=== PATIENT | male | born 1980 | race Caucasian/White ===

== ENCOUNTER → 2018-01-01 | Outpatient (CLI) | payer BC ==
--- NOTE | 2018-01-02 13:39 | ECHOF ---
Referral Reason:R06.02 Shortness of breath / I10 Hypertension MEASUREMENTS -------- HEIGHT: 193.0 cm WEIGHT: 158.8 kg BP: 171/93 RVIDd: 3.3 cm (< 3.3) IVSd: 1.4 cm (0.6 - 1.1) LVIDd: 5.5 cm (3.9 - 5.3) LVPWd: 1.5 cm (0.6 - 1.1) IVSs: 1.7 cm LVIDs: 3.9 cm LVPWs: 1.8 cm LAESV Index (A-L): 16.51 ml/m Ao Diam: 3.2 cm (2.0 - 3.7) AV Cusp: 2.2 cm (1.5 - 2.6) LA Diam: 4.0 cm (2.7 - 3.8) EPSS: 0.6 cm MV E Evans: 0.71 m/s MV DecT: 244 ms MV A Evans: 0.64 m/s MV E/A Ratio: 1.12 RAP: 5.00 mmHg RVSP: 13.54 mmHg MV EF SLOPE: 82.30 mm/s (70 - 150) MV EXCURSION: 1.27 cm (> 18.000) FINDINGS -------- Sinus rhythm. This was a technically difficult study with suboptimal views. The left ventricular size is normal. There is mild concentric left ventricular hypertrophy. Overa ll left ventricular systolic function is low-normal with, an EF between 50 - 55 %. The right ventricle is mildly enlarged. Normal LA size by volume 22+/-6 ml/m2. The right atrium is normal in size. 3ml of Lumason was utilized for enhancement of images. There is mild aortic valve sclerosis. There is no evidence of aortic regurgitation. There is no e vidence of aortic stenosis. The mitral valve leaflets are mildly thickened. There is trace to mild mitral regurgitation. Trace tricuspid regurgitation present. Right ventricular systolic pressure is normal at < 35 mmHg. There is no evidence of pulmonary hypertension. Trace/mild (physiologic) pulmonic regurgitation. The aortic root size is normal. Normal inferior vena cava with normal inspiratory collapse consistent with estimated right atrial pre ssure of 5 mmHg. There is no pericardial effusion. CONCLUSIONS -------- 1. Sinus rhythm. 2. This was a technically difficult study with suboptimal views. 3. The left ventricular size is normal. 4. There is mild concentric left ventricular hypertrophy. 5. Overall left ventricular systolic function is low-normal with, an EF between 50 - 55 %. 6. The right ventricle is mildly enlarged. 7. Normal LA size by volume 22+/-6 ml/m2. 8. 3ml of Lumason was utilized for enhancement of images. 9. There is mild aortic valve sclerosis. 10. The mitral valve leaflets are mildly thickened. 11. There is trace to mild mitral regurgitation. 12. Trace tricuspid regurgitation present. 13. Right ventricular systolic pressure is normal at < 35 mmHg. 14. There is no evidence of pulmonary hypertension. 15. Trace/mild (physiologic) pulmonic regurgitation. 16. The aortic root size is normal. 17. There is no pericardial effusion. AVIONICS INSTALLER: Lauro Asencio RDCS
== END | disposition home or self-care (01) ==
LOC: RADECHMAIN 15:09
PROVIDERS: ATTEND Family Medicine
DX: I08.1 Rheumatic disorders of both mitral and tricuspid valves (principal); I11.9 Hypertensive heart disease without heart failure
CPT/HCPCS: 93306; Q9950

== ENCOUNTER 2018-03-09 22:55 | Emergency (ER) | payer BC ==
[2018-03-10] MEDS ORDERED: ONDANSETRON ODT 8 MG TAB.RAPDIS PO STA (00:02)
[2018-03-10] MEDS ORDERED: SODIUM CHLORIDE 0.9% 1,000 ML IV STA (00:02)
[2018-03-10] MEDS ORDERED: KETOROLAC 30 MG/ML 1 ML VIAL IVP STA (00:05)
[2018-03-10] MEDS ORDERED: ONDANSETRON 4 MG/2 ML VIAL IVP STA (00:08)
[2018-03-10 00:17] LABS: Basophils % (A) 0 %; Eosinophils # (A) 0.1 k/uL (0-0.7); Eosinophils % (A) 0 %; HCT 47.6 % (39.0-53.0); HGB 15.7 gm/dL (13.0-17.5); Lymphocytes # (A) 2.6 k/uL (1.0-4.8); Lymphocytes % (A) 17 %; MCH 30.9 pg (25.0-35.0); MCHC 33.1 g/dL (31.0-37.0); MCV 93.5 fL (80.0-100.0); Mean Platelet Volume 6.7; Monocytes # (A) 0.7 k/uL (0-1.0); Monocytes % (A) 5 %; Neutrophils # (A) 11.5 k/uL (1.3-7.7); Neutrophils % (A) 76 %; Platelet Count 309 k/uL (150-450); RBC 5.09 m/uL (4.30-5.90); RDW 13.5 % (11.5-15.5); WBC 15.1 k/uL (3.8-10.6)
--- NOTE | 2018-03-10 00:18 | ED ---
General Adult HPI - General Chief complaint: Abdominal Pain Stated complaint: side pain Time Seen by Provider: 03/09/18 23:50 Source: patient, RN notes reviewed Mode of arrival: ambulatory Limitations: no limitations - History of Present Illness Initial comments: 37-year-old male presents to the emergency determine for a chief complaint of left-sided flank pain times one day. Patient states the pain starts in his back and radiates around his abdomen down to his groin and testicle. Patient denies history of kidney stones. Patient denies seeing any blood in the urine. Patient states he cannot take comfortable and is moving around the room. Patient admits to nausea denies vomiting. Patient denies any fevers or chills at home.Patient has no other complaints at this time including shortness of breath, chest pain, abdominal pain, nausea or vomiting, headache, or visual changes. - Related Data Home Medications Medication Instructions Recorded Confirmed Captopril/Hydrochlorothiazide 1 tab PO DAILY 03/09/18 03/09/18 [Capozide 50-25 mg] Metoprolol Succinate (ER) [Toprol 100 mg PO DAILY 03/09/18 03/09/18 Xl] Previous Rx's Medication Instructions Recorded HYDROcodone/APAP 5-325MG [Bardolph 1 tab PO Q6HR PRN #10 tab 03/10/18 5-325] Ibuprofen [Motrin] 600 mg PO Q6HR PRN #20 tab 03/10/18 Ondansetron HCl [Zofran] 4 mg PO Q8HR PRN #14 tablet 03/10/18 Tamsulosin [Flomax] 0.4 mg PO DAILY #20 cap 03/10/18 Allergies Allergy/AdvReac Type Severity Reaction Status Date / Time No Known Allergies Allergy Verified 03/09/18 23:40 Review of Systems ROS Statement: Those systems with pertinent positive or pertinent negative responses have been documented in the HPI. ROS Other: All systems not noted in ROS Statement are negative. Past Medical History Past Medical History: Hypertension History of Any Multi-Drug Resistant Organisms: None Reported Past Surgical History: No Surgical Hx Reported Past Psychological History: Anxiety Smoking Status: Never smoker Past Alcohol Use History: Occasional Past Drug Use History: None Reported General Exam Limitations: no limitations General appearance: alert, anxious (patient walking around room, uncomfortable) Head exam: Present: atraumatic, normocephalic, normal inspection Eye exam: Present: normal appearance. Absent: scleral icterus, conjunctival injection ENT exam: Present: normal exam, mucous membranes moist Neck exam: Present: normal inspection, full ROM. Absent: tenderness, meningismus, lymphadenopathy Respiratory exam: Present: normal lung sounds bilaterally. Absent: respiratory distress, wheezes, rales, rhonchi, stridor Cardiovascular Exam: Present: regular rate, normal rhythm, normal heart sounds. Absent: systolic murmur, diastolic murmur, rubs, gallop, clicks GI/Abdominal exam: Present: soft, tenderness (mild LLQ tenderness), normal bowel sounds. Absent: distended, guarding, rebound, rigid Back exam: Present: CVA tenderness (L) (cva tenderness) Neurological exam: Present: alert, oriented X3, CN II-XII intact Psychiatric exam: Present: normal affect, normal mood Course Vital Signs 03/09/18 23:05 Temperature 98.0 F Pulse Rate 75 Respiratory 18 Rate Blood Pressure 197/112 O2 Sat by Pulse 93 L Oximetry Medical Decision Making - Medical Decision Making 37-year-old male presents to the emergency department for a chief complaint of left flank pain times one day. Patient states the pain radiates from his abdomen into his testicle. Patient denies history of kidney stones. No blood in the urine according to patient. CBC shows a white count of 15.1, likely reactive. Urine shows no signs of infection, no fever. ALT slightly elevated at 131. CT abdomen and pelvis shows a small left renal calculus. Obstructing calculus in the distal left ureter with hydronephrosis and hydroureter. Patient will be discharged home with Flomax and Zofran. He will take Motrin for pain and if pain is severe he will take Bardolph. He is aware to follow up with urology in 1-2 days. I did discuss possibility of having lithotripsy as soreness 5 mm and patient is aware. He will return to the emergency department if he has any worsening symptoms. - Lab Data Result diagrams: 03/09/18 23:40 03/09/18 23:40 Lab Results 03/09/18 03/09/18 03/10/18 Range/Units 23:40 23:40 01:22 WBC 15.1 H (3.8-10.6) k/uL RBC 5.09 (4.30-5.90) m/uL Hgb 15.7 (13.0-17.5) gm/dL Hct 47.6 (39.0-53.0) % MCV 93.5 (80.0-100.0) fL MCH 30.9 (25.0-35.0) pg MCHC 33.1 (31.0-37.0) g/dL RDW 13.5 (11.5-15.5) % Plt Count 309 (150-450) k/uL Neutrophils % 76 % Lymphocytes % 17 % Monocytes % 5 % Eosinophils % 0 % Basophils % 0 % Neutrophils # 11.5 H (1.3-7.7) k/uL Lymphocytes # 2.6 (1.0-4.8) k/uL Monocytes # 0.7 (0-1.0) k/uL Eosinophils # 0.1 (0-0.7) k/uL Basophils # 0.0 (0-0.2) k/uL Sodium 140 (137-145) mmol/L Potassium 3.5 (3.5-5.1) mmol/L Chloride 99 (98-107) mmol/L Carbon Dioxide 30 (22-30) mmol/L Anion Gap 11 mmol/L BUN 13 (9-20) mg/dL Creatinine 1.00 (0.66-1.25) mg/dL Est GFR (CKD-EPI)AfAm >90 (>60 ml/min/1.73 sqM) Est GFR (CKD-EPI)NonAf >90 (>60 ml/min/1.73 sqM) Glucose 158 H (74-99) mg/dL Calcium 9.2 (8.4-10.2) mg/dL Total Bilirubin 0.5 (0.2-1.3) mg/dL AST 64 H (17-59) U/L ALT 131 H (21-72) U/L Alkaline Phosphatase 111 (38-126) U/L Total Protein 6.9 (6.3-8.2) g/dL Albumin 4.5 (3.5-5.0) g/dL Amylase 53 (30-110) U/L Lipase 31 (23-300) U/L Urine Color Light Yellow Urine Appearance Clear (Clear) Urine pH 7.0 (5.0-8.0) Ur Specific [place] 1.012 (1.001-1.035) Urine Protein Negative (Negative) Urine Glucose (UA) Trace H (Negative) Urine Ketones Negative (Negative) Urine Blood Negative (Negative) Urine Nitrite Negative (Negative) Urine Bilirubin Negative (Negative) Urine Urobilinogen <2.0 (<2.0) mg/dL Ur Leukocyte Esterase Negative (Negative) Disposition Clinical Impression: Ureterolithiasis Disposition: HOME SELF-CARE Condition: Good Instructions: Kidney Stones (ED) Additional Instructions: Please take Motrin for pain. If pain is severe take Bardolph. Please take Zofran for nausea. Take Flomax once a day. Follow up with urology tomorrow. Follow- up with primary care in 1-2 days as well. Return to the emergency department if you have any worsening symptoms. Prescriptions: HYDROcodone/APAP 5-325MG [Bardolph 5-325] 1 tab PO Q6HR PRN #10 tab PRN Reason: Pain Ibuprofen [Motrin] 600 mg PO Q6HR PRN #20 tab PRN Reason: Pain Ondansetron HCl [Zofran] 4 mg PO Q8HR PRN #14 tablet PRN Reason: Nausea Tamsulosin [Flomax] 0.4 mg PO DAILY #20 cap Is patient prescribed a controlled substance at d/c from ED?: No Referrals: Francisco Javier Jeter MD [Primary Care Provider] - 1-2 days Froylan Salamanca MD [STAFF PHYSICIAN] - 1-2 days Time of Disposition: 02:48
[2018-03-10 00:35] LABS: ALT 131 U/L (21-72); AST 64 U/L (17-59); Albumin 4.5 g/dL (3.5-5.0); Alkaline Phosphatase 111 U/L (38-126); Amylase 53 U/L (30-110); Anion Gap 11 mmol/L; Blood Urea Nitrogen 13 mg/dL (9-20); Calcium 9.2 mg/dL (8.4-10.2); Carbon Dioxide 30 mmol/L (22-30); Chloride 99 mmol/L (98-107); Glucose 158 mg/dL (74-99); Lipase 31 U/L (23-300); Potassium 3.5 mmol/L (3.5-5.1); Sodium 140 mmol/L (137-145); Total Bilirubin 0.5 mg/dL (0.2-1.3); Total Protein 6.9 g/dL (6.3-8.2)
[2018-03-10 01:50] LABS: Appearance,Urine Clear (Clear); Bilirubin,Urine Negative (Negative); Blood,Urine Negative (Negative); Color,Urine Light Yellow; Glucose,Urine (UA) Trace (Negative); Ketones,Urine Negative (Negative); Leukocyte Esterase,Urine Negative (Negative); Nitrite,Urine Negative (Negative); Protein,Urine Negative (Negative); Specific Gravity,Urine 1.012 (1.001-1.035); Urobilinogen,Urine <2.0 mg/dL (<2.0)
--- NOTE | 2018-03-10 01:51 | CT ---
EXAMINATION TYPE: CT abdomen pelvis wo con DATE OF EXAM: 03/10/2018 COMPARISON: None HISTORY: left flank pain renal stone protocol CT DLP: 2831.90 mGycm Automated exposure control for dose reduction was used. TECHNIQUE: Helical acquisition of images was performed from the lung bases through the pelvis. FINDINGS: Lung bases are clear. There is no pleural effusion. Heart size is normal. There is no pericardial eff usion. There are small hiatal hernia. Liver spleen pancreas gallbladder appear normal. Bile ducts are not dilated. There is no adrenal mass . Kidneys of normal size. There is mild left-sided hydronephrosis. There is mild left hydroureter and 5 mm calculus in the distal left ureter. There is mild left-sided perinephric edema. Right kidney sh ows no hydronephrosis. There is no retroperitoneal adenopathy. There is no ascites. There is umbilical hernia that contains fat. Appendix appears normal. There is no sign of free air. There is no intestinal wall thickening. T here are no dilated loops. Bladder distends smoothly. There is no bony destructive process. There is no compression fracture. Lumbar spine is intact. There is 3 mm calculus in the posterior left kidney. IMPRESSION: SMALL LEFT RENAL CALCULUS. OBSTRUCTING CALCULUS IN THE DISTAL LEFT URETER WITH HYDRONEPHROSIS AND HYD ROURETER.
[2018-03-10] MEDS ORDERED: MORPHINE SULFATE 4 MG/ML SYRINGE IVP STA (01:53)
[2018-03-10] MEDS ORDERED: HYDROcodone/APAP 5-325MG 1 EACH TAB PO STA (02:56)
[2018-03-10 03:18] VITALS: BP 183/93; PULSE 77; RESP 19; TEMP 97.5
== END 2018-03-10 03:12 | disposition home or self-care (01) ==
LOC: EC 22:55
DX: N13.2 Hydronephrosis with renal and ureteral calculous obstruction (principal); I10 Essential (primary) hypertension; Z79.899 Other long term (current) drug therapy
CPT/HCPCS: 99284; 96374; 96375 ×2; 96361; 36415; 80053; 82150; 83690; 85025; 81003; 74176; J2270; J2405; J1885

== ENCOUNTER → 2018-03-12 | Outpatient (CLI) | payer BC ==
--- NOTE | 2018-03-12 10:27 | XR ---
EXAMINATION TYPE: XR KUB DATE OF EXAM: 03/12/2018 COMPARISON: CT scan 03/10/2018 HISTORY: Follow-up left renal calculus TECHNIQUE: One view abdominal series FINDINGS: The osseous structures are intact. The bowel gas pattern is nonspecific. No suspicious calcification s or seen overlying the kidneys. A small renal calculus noted by recent CT scan is not clearly seen b y standard x-ray. Within the pelvis there is a vague 3 to 4 mm calcification at the level left hemipelvis which may rep resent a corresponding CT ureteral calculus. IMPRESSION: 1. Vague 4 mm hypodensity left hemipelvis may represent the CT reported left distal ureteral calculus .
== END | disposition home or self-care (01) ==
LOC: RADXRMAIN 10:04
PROVIDERS: ATTEND Urology
DX: N20.1 Calculus of ureter (principal)
CPT/HCPCS: 74018

== ENCOUNTER 2020-06-13 08:43 | Inpatient (IN) | payer BC ==
[2020-06-13] MEDS ORDERED: KETOROLAC 15 MG/ML 1 ML VIAL IVP STA (09:03)
[2020-06-13] MEDS ORDERED: cefTRIAXone IN SWFI 1,000 MG/10 ML SYRINGE IVP STA (09:04)
[2020-06-13] MEDS ORDERED: VANCOMYCIN IV PER PHARMACY 1 EACH MISC MISCELLANE PRN (09:05)
--- NOTE | 2020-06-13 09:07 | ED ---
General Adult HPI - General Chief complaint: ENT Stated complaint: neck swelling Time Seen by Provider: 06/13/20 08:50 Source: patient, RN notes reviewed, old records reviewed Mode of arrival: ambulatory Limitations: no limitations - History of Present Illness Initial comments: This is a 40-year-old male who presents emergency department stating that a few days ago he started having a abscess on the side of his neck. Patient saw his primary medical care doctor was given a shot of antibiotics in the office and then was given Bactrim. Patient states symptoms got worse this morning was significantly more painful. So he went saw his primary medical care doctor. The doctor sent him in the emergency department to be admitted. Patient indicated to me that he he did not think he would be able to tolerate the pain of having an I&D done in the emergency department. Patient denies any fever chills per patient denies any other symptoms. - Related Data Home Medications Medication Instructions Recorded Confirmed Metoprolol Succinate (ER) [Toprol 100 mg PO DAILY 03/09/18 06/13/20 Xl] Empagliflozin/Linagliptin 1 tab PO DAILY 06/13/20 06/13/20 [Glyxambi 25 mg-5 mg Tablet] Losartan Potassium 100 mg PO DAILY 06/13/20 06/13/20 amLODIPine [Norvasc] 10 mg PO DAILY 06/13/20 06/13/20 hydroCHLOROthiazide [Hydrodiuril] 25 mg PO DAILY 06/13/20 06/13/20 Allergies Allergy/AdvReac Type Severity Reaction Status Date / Time No Known Allergies Allergy Verified 06/13/20 10:13 Review of Systems ROS Statement: Those systems with pertinent positive or pertinent negative responses have been documented in the HPI. ROS Other: All systems not noted in ROS Statement are negative. Past Medical History Past Medical History: Diabetes Mellitus, Hypertension History of Any Multi-Drug Resistant Organisms: None Reported Past Surgical History: No Surgical Hx Reported Past Psychological History: Anxiety Smoking Status: Never smoker Past Alcohol Use History: Occasional Past Drug Use History: None Reported General Exam - General Exam Comments Initial Comments: GENERAL Patient is well-developed and well-nourished. Patient is in mild distress. EYES Patient's pupils are equal and round. Extraocular motion is intact NECK Patient has a large indurated area measuring approximately 5 seconds on the left side of his neck there is no open drainage at this point SKIN Unremarkable NEURO The patient is alert and oriented 3 PYSCH Patient has normal interpersonal interactions. MUSCULOSKELETAL Patient was all 4 extremities with full range of motion Limitations: no limitations Course Vital Signs 06/13/20 06/13/20 06/13/20 08:48 09:51 10:00 Temperature 98.6 F Pulse Rate 79 75 Respiratory 18 18 18 Rate Blood Pressure 150/92 175/95 O2 Sat by Pulse 95 95 Oximetry Medical Decision Making - Medical Decision Making Computed tomography scan shows an abscess on the left side of the neck. I sta rted the patient on Rocephin and vancomycin. I spoke with Dr. More agreed to admit the patient admitted the patient wrote admitting orders - Lab Data Result diagrams: 06/13/20 09:56 06/13/20 10:53 Lab Results 06/13/20 06/13/20 06/13/20 Range/Units 09:56 09:56 10:53 WBC 12.8 H (3.8-10.6) k/uL RBC 5.41 (4.30-5.90) m/uL Hgb 17.4 (13.0-17.5) gm/dL Hct 53.0 (39.0-53.0) % MCV 97.9 (80.0-100.0) fL MCH 32.2 (25.0-35.0) pg MCHC 32.9 (31.0-37.0) g/dL RDW 12.5 (11.5-15.5) % Plt Count 280 (150-450) k/uL Neutrophils % 73 % Lymphocytes % 18 % Monocytes % 6 % Eosinophils % 2 % Basophils % 0 % Neutrophils # 9.3 H (1.3-7.7) k/uL Lymphocytes # 2.3 (1.0-4.8) k/uL Monocytes # 0.7 (0-1.0) k/uL Eosinophils # 0.2 (0-0.7) k/uL Basophils # 0.1 (0-0.2) k/uL Sodium 138 (137-145) mmol/L Potassium 3.8 (3.5-5.1) mmol/L Chloride 99 (98-107) mmol/L Carbon Dioxide 33 H (22-30) mmol/L Anion Gap 6 mmol/L BUN 14 (9-20) mg/dL Creatinine 0.72 (0.66-1.25) mg/dL Est GFR (CKD-EPI)AfAm >90 (>60 ml/min/1.73 sqM) Est GFR (CKD-EPI)NonAf >90 (>60 ml/min/1.73 sqM) Glucose 110 H (74-99) mg/dL Plasma Lactic Acid Tony 1.0 (0.7-2.0) mmol/L Calcium 9.1 (8.4-10.2) mg/dL Total Bilirubin 0.6 (0.2-1.3) mg/dL AST 24 (17-59) U/L ALT 22 (4-49) U/L Alkaline Phosphatase 96 (38-126) U/L Total Protein 6.7 (6.3-8.2) g/dL Albumin 4.1 (3.5-5.0) g/dL Disposition Clinical Impression: Neck abscess Disposition: ADMITTED IP TO THIS HOSP Referrals: Francisco Javier Jeter MD [Primary Care Provider] - 1-2 days Time of Disposition: 11:44
[2020-06-13] MEDS ORDERED: VANCOMYCIN 2,250 MG in SODIUM CHLORIDE 0.9% 500 ML 500 ML IVPB ONE (09:30)
[2020-06-13 10:09] LABS: Basophils # (A) 0.1 k/uL (0-0.2); Basophils % (A) 0 %; Eosinophils # (A) 0.2 k/uL (0-0.7); Eosinophils % (A) 2 %; HGB 17.4 gm/dL (13.0-17.5); Lymphocytes # (A) 2.3 k/uL (1.0-4.8); Lymphocytes % (A) 18 %; MCH 32.2 pg (25.0-35.0); MCHC 32.9 g/dL (31.0-37.0); MCV 97.9 fL (80.0-100.0); Mean Platelet Volume 8.3; Monocytes # (A) 0.7 k/uL (0-1.0); Monocytes % (A) 6 %; Neutrophils # (A) 9.3 k/uL (1.3-7.7); Neutrophils % (A) 73 %; Platelet Count 280 k/uL (150-450); RBC 5.41 m/uL (4.30-5.90); RDW 12.5 % (11.5-15.5); WBC 12.8 k/uL (3.8-10.6)
[2020-06-13] MEDS ORDERED: hydrALAZINE HCL 20 MG/ML 1 ML VIAL IVP STA (11:02)
[2020-06-13 11:23] LABS: ALT 22 U/L (4-49); AST 24 U/L (17-59); African American GFR (CKD) >90 (>60 ml/min/1.73 sqM); Albumin 4.1 g/dL (3.5-5.0); Alkaline Phosphatase 96 U/L (38-126); Anion Gap 6 mmol/L; Blood Urea Nitrogen 14 mg/dL (9-20); Calcium 9.1 mg/dL (8.4-10.2); Carbon Dioxide 33 mmol/L (22-30); Chloride 99 mmol/L (98-107); Glucose 110 mg/dL (74-99); Non-African American GFR(CKD) >90 (>60 ml/min/1.73 sqM); Potassium 3.8 mmol/L (3.5-5.1); Sodium 138 mmol/L (137-145); Total Bilirubin 0.6 mg/dL (0.2-1.3); Total Protein 6.7 g/dL (6.3-8.2)
--- NOTE | 2020-06-13 11:31 | CT ---
EXAMINATION TYPE: CT soft tissue neck w con DATE OF EXAM: 06/13/2020 10:58 AM COMPARISON: None HISTORY: Neck swelling CT DLP: 697.5 mGycm Automated exposure control for dose reduction was used. CONTRAST: CT scan of the neck is performed following with IV Contrast, patient injected with 100 mL of Isovue 3 00. Axial images are obtained, coronal and sagittal reformatted images are reviewed. FINDINGS: Airway: There is narrowing and occlusion of the nasopharynx as it courses inferiorly into the orophar ynx, with prominent palatine tonsils containing multiple tonsillar bilaterally. There is also promine nt uvula. There is no inflammation or haziness of the bilateral tonsils. The oropharynx is patent. Parotid/submandibular glands: No gross abnormality seen. Carotid/Vascular Structures: Patent. Osseous Structures: Degenerative changes of the cervical spine. Other: No cervical lymphadenopathy. No focal drainable fluid collection. IMPRESSION: 1. Enlarged palatine tonsils with tonsilliths bilaterally, causing occlusion of the nasopharynx post eriorly. The uvula is prominent, recommend direct visualization. 2. No evidence of focal drainable fluid collections.
[2020-06-13] MEDS: SODIUM CHLORIDE 0.9% 1,000 ML IV ONE ×2 (14:35→19:51)
[2020-06-13] MEDS: VANCOMYCIN 2,250 MG in SODIUM CHLORIDE 0.9% 500 ML 500 ML IVPB SCH (19:51)
[2020-06-13] MEDS ORDERED: LACTULOSE 20 GM/30 ML CUP PO PRN (20:41)
[2020-06-13] MEDS ORDERED: MAGNESIUM HYDROXIDE 2,400 MG/10 ML CUP PO PRN (20:41)
[2020-06-13] MEDS ORDERED: ONDANSETRON 4 MG/2 ML VIAL IVP PRN (20:41)
[2020-06-13] MEDS ORDERED: CALCIUM CARBONATE 500 MG CHEWABLE PO PRN (20:41)
[2020-06-13] MEDS ORDERED: NALOXONE 0.4 MG/ML 1 ML VIAL IV PRN (20:41)
[2020-06-13] MEDS ORDERED: MAG HYDROX/AL HYDROX/SIMETH 30 ML CUP PO PRN (20:41)
[2020-06-13] MEDS ORDERED: MELATONIN 3 MG TABLET PO PRN (20:41)
[2020-06-13] MEDS ORDERED: ACETAMINOPHEN TAB 325 MG TAB PO PRN (20:41)
[2020-06-13] MEDS ORDERED: KETOROLAC 15 MG/ML 1 ML VIAL IVP SCH (22:15)
[2020-06-13] MEDS: amLODIPine 10 MG TAB PO SCH ×3 (22:18→22:21)
[2020-06-13] MEDS: LOSARTAN 50 MG TAB PO SCH (22:19)
[2020-06-13] MEDS: ENOXAPARIN 40 MG/0.4 ML SYRINGE SQ SCH (22:21)
[2020-06-13] MEDS: KETOROLAC 15 MG/ML 1 ML VIAL IVP SCH (23:37)
[2020-06-14] MEDS ORDERED: KETOROLAC 15 MG/ML 1 ML VIAL IVP SCH
[2020-06-14] MEDS: VANCOMYCIN 2,250 MG in SODIUM CHLORIDE 0.9% 500 ML 500 ML IVPB SCH ×3 (03:25→18:28)
[2020-06-14] MEDS: KETOROLAC 15 MG/ML 1 ML VIAL IVP SCH ×2 (03:29→11:25)
[2020-06-14 04:36] LABS: Basophils # (A) 0.1 k/uL (0-0.2); Basophils % (A) 1 %; Eosinophils # (A) 0.2 k/uL (0-0.7); Eosinophils % (A) 2 %; HCT 48.9 % (39.0-53.0); HGB 15.8 gm/dL (13.0-17.5); Lymphocytes # (A) 2.9 k/uL (1.0-4.8); Lymphocytes % (A) 27 %; MCHC 32.3 g/dL (31.0-37.0); MCV 99.2 fL (80.0-100.0); Mean Platelet Volume 7.2; Monocytes # (A) 0.7 k/uL (0-1.0); Monocytes % (A) 6 %; Neutrophils % (A) 63 %; Platelet Count 245 k/uL (150-450); RBC 4.92 m/uL (4.30-5.90); RDW 12.6 % (11.5-15.5); WBC 11.1 k/uL (3.8-10.6)
[2020-06-14 10:03] LABS: African American GFR (CKD) 135.9 (60.0-200.0); Anion Gap 11.4 mmol/L (4.00-12.00); BUN/Creat Ratio 15.71 Ratio (12.00-20.00); Calcium 8.4 mg/dL (8.7-10.3); Carbon Dioxide 27.6 mmol/L (21.6-31.8); Non-African American GFR(CKD) 117.2 (60.0-200.0); Potassium 3.6 mmol/L (3.5-5.5)
[2020-06-14] MEDS ORDERED: LIDOCAINE 1% INJ 10MG/ML (20 ML MDV) SQ ONE ×2 (10:24→10:41)
[2020-06-14] MEDS: LINAGLIPTIN PO SCH (10:44)
[2020-06-14] MEDS: EMPAGLIFLOZIN PO SCH (10:44)
[2020-06-14] MEDS ORDERED: THIAMINE 100 MG/ML 2 ML VIAL IM STA (10:50)
[2020-06-14] MEDS ORDERED: LORazepam 2 MG/ML INJ IV PRN ×3 (10:50)
--- NOTE | 2020-06-14 11:24 | P.GSCN ---
History of Present Illness Consult date: 06/14/20 History of present illness: CHIEF COMPLAINT: Left neck abscess HISTORY OF PRESENT ILLNESS: This is a 40-year-old male with a known history of diabetes, hypertension, alcohol dependence. He presents to the emergency room with a 2 day history of a left neck abscess. He was seen by his primary care physician and was given a antibiotic injection in the office and then a prescription for Bactrim. Patient reports that his symptoms continued to worsen with swelling redness and drainage of the neck abscess. It also became more painful. He came into the emergency room for further evaluation and treatment. He had a computed tomography scan of the left neck which did show evidence of a subcutaneous abscess. Patient has been placed on IV vancomycin. Denies any hi story of MRSA. Denies any fever, chills or sweats. PAST MEDICAL HISTORY: See list. PAST SURGICAL HISTORY: See list. MEDICATIONS: See list. ALLERGIES: See list. SOCIAL HISTORY: No illicit drug use. REVIEW OF SYSTEMS: CONSTITUTIONAL: Denies fever or chills. HEENT: Denies blurred vision, vision changes, or eye pain. Denies hemoptysis CARDIOVASCULAR: Denies chest pain or pressure. RESPIRATORY: No shortness of breath. GASTROINTESTINAL: See HPI for pertinent findings HEMATOLOGIC: Denies bleeding disorders. GENITOURINARY: Denies any blood in urine or increased urinary frequency. SKIN: Denies pruitis. Denies rash. PHYSICAL EXAM: VITAL SIGNS: Reviewed GENERAL: Well-developed in no acute distress. HEENT: Left lower neck about a 2 inch in length abscess. It's fluctuant. Erythema present. Small area of puslike drainage. No sclera icterus. Extraocular movements grossly intact. Moist buccal mucosa. Head is atraumatic, normocephalic. No nasal drainage. ABDOMEN: Soft. Nondistended. Nontender umbilical hernia present NEUROLOGIC: Alert and oriented. Cranial nerves II through XII grossly intact. LABORATORY DATA: WBC 12.8 on 11.1 lactic 1.0 IMAGING: CT of neck subcutaneous abscess left neck posterior to the sternocleidomastoid muscle measuring 4.2 cm x 2.5 cm. Enlarged palatine tonsils causing occlusion of the nasopharynx posteriorly ASSESSMENT: 1. Neck abscess status post I&D at the bedside by Dr. Vega. Cultures have been obtained 2. Diabetes mellitus type 2 3. Alcohol abuse PLAN: -Status post I&D at bedside by Dr. Vega -Await wound culture results -Continue IV vancomycin -Add CIWA protocol with thiamine and multivitamin for alcohol withdrawal Thank you for this consultation Physician Correspondence Transcriber note has been reviewed by physician. Signing provider agrees with the documented findings, assessment, and plan of care. Past Medical History Past Medical History: Diabetes Mellitus, Hypertension, Sleep Apnea/CPAP/BIPAP History of Any Multi-Drug Resistant Organisms: None Reported Past Surgical History: No Surgical Hx Reported Additional Past Surgical History / Comment(s): Pilonodal cyst surgery Past Anesthesia/Blood Transfusion Reactions: No Reported Reaction Past Psychological History: Anxiety Smoking Status: Never smoker Past Alcohol Use History: Occasional Past Drug Use History: None Reported - Past Family History Father Family Medical History: Cancer, Hypertension, Prostate Disorder Additional Family Medical History / Comment(s): Prostatectomy Mother Family Medical History: Fibromyalgia Additional Family Medical History / Comment(s): Fibromyalgia, allergies Medications and Allergies Home Medications Medication Instructions Recorded Confirmed Type Metoprolol Succinate (ER) [Toprol 100 mg PO DAILY 03/09/18 06/13/20 History Xl] Empagliflozin/Linagliptin 1 tab PO DAILY 06/13/20 06/13/20 History [Glyxambi 25 mg-5 mg Tablet] Losartan Potassium 100 mg PO DAILY 06/13/20 06/13/20 History amLODIPine [Norvasc] 10 mg PO DAILY 06/13/20 06/13/20 History hydroCHLOROthiazide [Hydrodiuril] 25 mg PO DAILY 06/13/20 06/13/20 History Allergies Allergy/AdvReac Type Severity Reaction Status Date / Time No Known Allergies Allergy Verified 06/13/20 10:13 Surgical - Exam Vital Signs Temp Pulse Resp BP Pulse Ox 98.6 F 79 18 150/92 95 06/13/20 08:48 06/13/20 08:48 06/13/20 08:48 06/13/20 08:48 06/13/20 08:48 Results - Labs 06/14/20 04:15 06/14/20 04:15 Abnormal Lab Results - Last 24 Hours (Table) 06/13/20 06/14/20 06/14/20 Range/Units 10:53 04:15 04:15 WBC 11.1 H (3.8-10.6) k/uL Carbon Dioxide 33 H (22-30) mmol/L Glucose 110 H (74-99) mg/dL Calcium 8.4 L (8.7-10.3) mg/dL Diabetes panel 06/13/20 06/14/20 Range/Units 10:53 04:15 Sodium 138 141 (137-145) mmol/L Potassium 3.8 3.6 (3.5-5.1) mmol/L Chloride 99 102 (98-107) mmol/L Carbon Dioxide 33 H 27.6 (22-30) mmol/L BUN 14 11.0 (9-20) mg/dL Creatinine 0.72 0.7 (0.66-1.25) mg/dL Glucose 110 H 86 (74-99) mg/dL Calcium 9.1 8.4 L (8.4-10.2) mg/dL AST 24 (17-59) U/L ALT 22 (4-49) U/L Alkaline Phosphatase 96 (38-126) U/L Total Protein 6.7 (6.3-8.2) g/dL Albumin 4.1 (3.5-5.0) g/dL Calcium panel 06/13/20 06/14/20 Range/Units 10:53 04:15 Calcium 9.1 8.4 L (8.4-10.2) mg/dL Albumin 4.1 (3.5-5.0) g/dL Pituitary panel 06/13/20 06/14/20 Range/Units 10:53 04:15 Sodium 138 141 (137-145) mmol/L Potassium 3.8 3.6 (3.5-5.1) mmol/L Chloride 99 102 (98-107) mmol/L Carbon Dioxide 33 H 27.6 (22-30) mmol/L BUN 14 11.0 (9-20) mg/dL Creatinine 0.72 0.7 (0.66-1.25) mg/dL Glucose 110 H 86 (74-99) mg/dL Calcium 9.1 8.4 L (8.4-10.2) mg/dL Adrenal panel 06/13/20 06/14/20 Range/Units 10:53 04:15 Sodium 138 141 (137-145) mmol/L Potassium 3.8 3.6 (3.5-5.1) mmol/L Chloride 99 102 (98-107) mmol/L Carbon Dioxide 33 H 27.6 (22-30) mmol/L BUN 14 11.0 (9-20) mg/dL Creatinine 0.72 0.7 (0.66-1.25) mg/dL Glucose 110 H 86 (74-99) mg/dL Calcium 9.1 8.4 L (8.4-10.2) mg/dL Total Bilirubin 0.6 (0.2-1.3) mg/dL AST 24 (17-59) U/L ALT 22 (4-49) U/L Alkaline Phosphatase 96 (38-126) U/L Total Protein 6.7 (6.3-8.2) g/dL Albumin 4.1 (3.5-5.0) g/dL
[2020-06-14] MEDS: MULTIVITAMINS, THERA 1 EACH TAB PO SCH ×2 (11:36→12:13)
[2020-06-14] MEDS ORDERED: KETOROLAC 15 MG/ML 1 ML VIAL IVP PRN (15:03)
[2020-06-14 17:16] LABS: Glucose,Whole Blood 78 mg/dL (75-99)
[2020-06-14] MEDS: INSULIN ASPART (NovoLOG) 100 UNIT/ML VIAL SQ SCH ×2 (17:44→22:26)
[2020-06-14] MEDS: NAPROXEN 250 MG TAB PO SCH (18:26)
[2020-06-14] MEDS: THIAMINE 100 MG TAB PO SCH (18:28)
[2020-06-14] MEDS: amLODIPine 10 MG TAB PO SCH (20:19)
[2020-06-14] MEDS: LOSARTAN 50 MG TAB PO SCH (20:19)
[2020-06-14] MEDS: ENOXAPARIN 40 MG/0.4 ML SYRINGE SQ SCH (20:20)
[2020-06-14 21:33] LABS: Glucose,Whole Blood 122 mg/dL (75-99)
--- NOTE | 2020-06-15 00:15 | P.HPIM ---
History of Present Illness H&P Date: 06/14/20 Chief Complaint: Left neck abscess History of presenting complaint: This is a pleasant 40-year-old patient of Dr. Francisco Javier Jeter. Chronic stable medical conditions include diabetes, hypertension, obstructive sleep apnea, morbid obesity. Patient's had a motor described as a small wound of the back of the neck about 6 weeks ago. Has had an on and off. Did get some antibiotics from his family doctor. A faint is progressed to become painful large. Questionable fever. And came into the ER.. Some the left side of the neck. Bedside I&D was done by Dr. Vega. at the bedside. Review of systems: GEN.: None EYES: None HEENT: None NECK: [As above RESPIRATORY: None CARDIOVASCULAR: None GASTROINTESTINAL: None GENITOURINARY: None MUSCULOSKELETAL: None LYMPHATICS: None HEMATOLOGICAL: None PSYCHIATRY: None NEUROLOGICAL: None Past medical history to include: Diabetes, hypertension, sleep apnea, anxiety Social history: Works in [employer]. Drinks about 5-6 drinks a day including vodka. No smoking. . Physical examination: VITAL SIGNS: 98.6, 79, 18, 150/92, 95% room air-upon presentation GENERAL: BMI 40.5, sitting up in a chair, awake. EYES: Pupils equal. Conjunctiva normal. HEENT: External appearance of nose and ears normal, oral cavity grossly normal. NECK: JVD unable to assess; wound on the left lower portion of the neck the dr gregory on the same. Some surrounding induration. HEART: Distant heart sounds; no edema. LUNGS: Respiratory rate normal; distant breath sounds. ABDOMEN: Soft, nontender, liver spleen not palpable, no masses palpable. PSYCH: Alert and oriented x3; mood and affect normal. NEUROLOGICAL: Cranial nerves grossly intact; no facial asymmetry, power and sensation grossly intact. LYMPHATICS: No lymph nodes palpable in the axilla and neck INVESTIGATIONS, reviewed in the clinical context: White count 12.8 hemoglobin 13.4 increased neutrophils potassium 3.8 creatinine 0.7 to Soft tissue neck computed tomography scan-and large palatine tonsils causing occlusion of nasopharynx posterior daily. Assessment: -Recurrent abscess of the left part of the neck in the inferior portion externally having failed outpatient treatment. Bedside I&D candidate at this morning. -Morbid obesity BMI 40.5 -Diabetes mellitus type 2 and oral hypoglycemic -Obstructive sleep apnea uses CPAP -Essential hypertension Plan: Patient is put on IV vancomycin. Other medications and resume. Accu-Cheks will be followed. Follow Dr. Vega. Care was discussed with the patient and questions answered. Cultures pending Past Medical History Past Medical History: Diabetes Mellitus, Hypertension, Sleep Apnea/CPAP/BIPAP History of Any Multi-Drug Resistant Organisms: None Reported Past Surgical History: No Surgical Hx Reported Additional Past Surgical History / Comment(s): Pilonodal cyst surgery Past Anesthesia/Blood Transfusion Reactions: No Reported Reaction Past Psychological History: Anxiety Smoking Status: Never smoker Past Alcohol Use History: Occasional Past Drug Use History: None Reported - Past Family History Father Family Medical History: Cancer, Hypertension, Prostate Disorder Additional Family Medical History / Comment(s): Prostatectomy Mother Family Medical History: Fibromyalgia Additional Family Medical History / Comment(s): Fibromyalgia, allergies Medications and Allergies Home Medications Medication Instructions Recorded Confirmed Type Metoprolol Succinate (ER) [Toprol 100 mg PO DAILY 03/09/18 06/13/20 History Xl] Empagliflozin/Linagliptin 1 tab PO DAILY 06/13/20 06/13/20 History [Glyxambi 25 mg-5 mg Tablet] Losartan Potassium 100 mg PO DAILY 06/13/20 06/13/20 History amLODIPine [Norvasc] 10 mg PO DAILY 06/13/20 06/13/20 History hydroCHLOROthiazide [Hydrodiuril] 25 mg PO DAILY 06/13/20 06/13/20 History Allergies Allergy/AdvReac Type Severity Reaction Status Date / Time No Known Allergies Allergy Verified 06/13/20 10:13 Physical Exam Vitals: Vital Signs Temp Pulse Pulse Resp BP BP Pulse Ox 06/14/20 08:52 98 F 73 17 162/98 98 06/14/20 05:26 98.9 F 74 16 163/85 97 06/14/20 00:00 18 06/13/20 18:44 98.6 F 75 18 159/91 95 06/13/20 18:00 75 18 159/91 95 06/13/20 14:00 73 18 152/95 95 06/13/20 13:00 72 18 142/87 95 06/13/20 12:00 72 18 160/80 95 06/13/20 11:00 70 18 155/84 95 Intake and Output 06/13/20 06/14/20 06/14/20 22:59 06:59 14:59 Intake Total 280 Balance 280 Intake: Oral 280 Other: Voiding Method Toilet # Voids 2 0 # Bowel Movements 0 0 Results CBC & Chem 7: 06/14/20 04:15 06/14/20 04:15 Labs: Abnormal Lab Results - Last 24 Hours (Table) 06/13/20 06/14/20 06/14/20 Range/Units 10:53 04:15 04:15 WBC 11.1 H (3.8-10.6) k/uL Carbon Dioxide 33 H (22-30) mmol/L Glucose 110 H (74-99) mg/dL Calcium 8.4 L (8.7-10.3) mg/dL Thrombosis Risk Factor Assmnt - Choose All That Apply Any of the Below Risk Factors Present?: Yes Each Factor Represents 1 point: Age 41-60 years, Obesity (BMI >25) Other Risk Factors: No Other congenital or acquired thrombophilia - If yes, enter type in comment: No Thrombosis Risk Factor Assessment Total Risk Factor Score: 2 Thrombosis Risk Factor Assessment Level: Low Risk
[2020-06-15] MEDS ORDERED: VANCOMYCIN TROUGH DUE 1 EACH MISC MISCELLANE ONE (01:00)
[2020-06-15] MEDS: VANCOMYCIN 2,250 MG in SODIUM CHLORIDE 0.9% 500 ML 500 ML IVPB SCH ×3 (01:49→17:54)
[2020-06-15 07:02] LABS: Glucose,Whole Blood 85 mg/dL (75-99)
[2020-06-15] MEDS: INSULIN ASPART (NovoLOG) 100 UNIT/ML VIAL SQ SCH ×4 (07:31→20:42)
[2020-06-15] MEDS: THIAMINE 100 MG TAB PO SCH ×2 (08:23→17:54)
[2020-06-15] MEDS: MULTIVITAMINS, THERA 1 EACH TAB PO SCH (08:23)
[2020-06-15] MEDS: NAPROXEN 250 MG TAB PO SCH ×3 (08:27→17:53)
[2020-06-15] MEDS: LINAGLIPTIN PO SCH ×2 (09:00→10:43)
[2020-06-15] MEDS: EMPAGLIFLOZIN PO SCH ×2 (09:00→10:43)
[2020-06-15 09:16] LABS: Non-African American GFR(CKD) 134.6 (60.0-200.0)
[2020-06-15 11:39] LABS: Glucose,Whole Blood 93 mg/dL (75-99)
--- NOTE | 2020-06-15 12:36 | P.PN ---
Subjective Progress Note Date: 06/15/20 CHIEF COMPLAINT: Neck abscess HISTORY OF PRESENT ILLNESS: Patient is being followed for a neck abscess. He is status post bedside I&D. Cultures are pending. Currently on vancomycin. Patient reports improvement in his pain. The abscess is still draining. He is afebrile. Denies any nausea or vomiting. Blood sugar 93 PHYSICAL EXAM: VITAL SIGNS: Reviewed. GENERAL: Well-developed in no acute distress. HEENT: No sclera icterus. Extraocular movements grossly intact. Moist buccal mucosa. Head is atraumatic, normocephalic. Left neck abscess decrease in size. It is still is draining pus and blood. ABDOMEN: Soft. Nondistended. Nontender. NEUROLOGIC: Alert and oriented. Cranial nerves II through XII grossly intact. ASSESSMENT: 1. Neck abscess status post I&D at the bedside by Dr. Vega. Cultures have been obtained 2. Diabetes mellitus type 2 3. Alcohol abuse PLAN: -continue vancomycin -Await wound cultures -Okay for patient to shower and wash area of abscess with soap and water. Physician Aba Therapist note has been reviewed by physician. Signing provider agrees with the documented findings, assessment, and plan of care. Objective - Vital Signs Vital signs: Vital Signs Temp 97.9 F 06/15/20 11:49 Pulse 66 06/15/20 11:49 Resp 17 06/15/20 11:49 BP 136/82 06/15/20 11:49 Pulse Ox 98 06/15/20 11:25 Intake & Output 06/14/20 06/15/20 06/15/20 18:59 06:59 18:59 Intake Total 280 Balance 280 Intake: Oral 280 Other: Voiding Method Toilet Toilet Toilet # Voids 1 # Bowel Movements 0 - Labs CBC & Chem 7: 06/14/20 04:15 06/15/20 06:10 Labs: Abnormal Lab Results - Last 24 Hours (Table) 06/14/20 06/15/20 Range/Units 21:31 06:10 Creatinine 0.5 L (0.6-1.5) mg/dL POC Glucose (mg/dL) 122 H (75-99) mg/dL Microbiology - Last 24 Hours (Table) 06/13/20 09:56 Blood Culture - Preliminary Blood No Growth after 48 hours 06/14/20 12:00 Gram Stain - Preliminary Neck Wound Culture - Preliminary 06/14/20 12:00 Anaerobic Culture - Preliminary Neck
[2020-06-15 17:19] LABS: Glucose,Whole Blood 78 mg/dL (75-99)
[2020-06-15 19:59] LABS: Glucose,Whole Blood 106 mg/dL (75-99)
[2020-06-15] MEDS: ENOXAPARIN 40 MG/0.4 ML SYRINGE SQ SCH (20:48)
[2020-06-15] MEDS: LOSARTAN 50 MG TAB PO SCH (20:48)
--- NOTE | 2020-06-15 20:59 | P.PN ---
Progress Note - Text Progress Note Date: 06/15/20 Chief Complaint: Left neck abscess History of presenting complaint: This is a pleasant 40-year-old patient of Dr. Francisco Javier Jeter. Chronic stable medical conditions include diabetes, hypertension, obstructive sleep apnea, morbid obesity. Patient's had a motor described as a small wound of the back of the neck about 6 weeks ago. Has had an on and off. Did get some antibiotics from his family doctor. progressed to become painful large-draining. Questionable fever. And came into the ER.. I&D of the bedside was carried out by Dr. Vega. Started on IV vancomycin. Today-feeling better. Still draining some. No fever no chills. Review of systems: Was done for constitutional, cardiovascular, GI, pulmonary. relevant finding as above Active Medications Acetaminophen (Acetaminophen Tab 325 Mg Tab) 650 mg PO Q6HR PRN PRN Reason: Mild Pain or Fever > 100.5 Al Hydroxide/Mg Hydroxide (Mag Hydrox/Al Hydrox/Simeth 30 Ml Cup) 15 ml PO Q6HR PRN PRN Reason: Indigestion Amlodipine Besylate (Amlodipine 10 Mg Tab) 10 mg PO [facility] Last Admin: 06/14/20 20:19 Dose: 10 mg Documented by: Calcium Carbonate/Glycine (Calcium Carbonate 500 Mg Chewable) 1,000 mg PO Q4HR PRN PRN Reason: Dyspepsia Enoxaparin Sodium (Enoxaparin 40 Mg/0.4 Ml Syringe) 40 mg SQ [facility] Last Admin: 06/15/20 20:48 Dose: 40 mg Documented by: Vancomycin HCl 2,250 mg/ (Sodium Chloride) 500 mls @ 167 mls/hr IVPB Q8H [facility] Last Admin: 06/15/20 17:54 Dose: 167 mls/hr Documented by: Insulin Aspart (Insulin Aspart (Novolog) 100 Unit/Ml Vial) 0 unit SQ [facility]; Protocol Last Admin: 06/15/20 20:42 Dose: Not Given Documented by: Ketorolac Tromethamine (Ketorolac 15 Mg/Ml 1 Ml Vial) 15 mg IVP Q6H PRN PRN Reason: pain Stop: 06/18/20 23:16 Last Admin: 06/15/20 20:50 Dose: 15 mg Documented by: Lactulose (Lactulose 20 Gm/30 Ml Cup) 20 gm PO DAILY PRN PRN Reason: Constipation Lorazepam (Lorazepam 2 Mg/Ml Inj) 1 mg IV Q2HR PRN PRN Reason: CIWA 8 or 9 Lorazepam (Lorazepam 2 Mg/Ml Inj) 1 mg IV Q1HR PRN PRN Reason: CIWA 10 to 15 Lorazepam (Lorazepam 2 Mg/Ml Inj) 2 mg IV Q10M PRN PRN Reason: CIWA 16 or higher Stop: 06/16/20 10:50 Losartan Potassium (Losartan 50 Mg Tab) 100 mg PO HS [facility] Last Admin: 06/15/20 20:48 Dose: 100 mg Documented by: Magnesium Hydroxide (Magnesium Hydroxide 2,400 Mg/10 Ml Cup) 2,400 mg PO DAILY PRN PRN Reason: Constipation Melatonin (Melatonin 3 Mg Tablet) 3 mg PO HS PRN PRN Reason: Insomnia Multivitamins (Multivitamins, Thera 1 Each Tab) 1 each PO DAILY [facility] Last Admin: 06/15/20 08:23 Dose: 1 each Documented by: Naloxone HCl (Naloxone 0.4 Mg/Ml 1 Ml Vial) 0.2 mg IV Q2M PRN PRN Reason: Opioid Reversal Naproxen (Naproxen 250 Mg Tab) 250 mg PO TID-W/MEALS [facility] Last Admin: 06/15/20 17:53 Dose: 250 mg Documented by: (Empagliflozin/Linagliptin [ Glyxambi 25 Mg-5 Mg Tablet] 1 Each Tablet) 1 tab PO DAILY [facility] Last Admin: 06/15/20 10:43 Dose: 1 tab Documented by: Ondansetron HCl (Ondansetron 4 Mg/2 Ml Vial) 4 mg IVP Q8HR PRN PRN Reason: Nausea And Vomiting Thiamine HCl (Thiamine 100 Mg Tab) 100 mg PO BID-W/MEALS [facility] Last Admin: 06/15/20 17:54 Dose: 100 mg Documented by: Physical examination: VITAL SIGNS: 97.5, 68, 18, 150 twice a day, that 97% room air GENERAL: Sitting on chair, comfortable EYES: Pupils equal. Conjunctiva normal. NECK: JVD unable to assess; wound on the left lower portion of the neck with some drainage. HEART: Distant heart sounds; no edema. LUNGS: Respiratory rate normal; distant breath sounds. ABDOMEN: Soft, nontender, liver spleen not palpable, no masses palpable. PSYCH: Alert and oriented x3; mood and affect normal. INVESTIGATIONS, reviewed in the clinical context: Wound culture pending White count 12.8 hemoglobin 13.4 increased neutrophils potassium 3.8 creatinine 0.7 to Soft tissue neck computed tomography scan-and large palatine tonsils causing occlusion of nasopharynx posterior daily. Assessment: -Recurrent abscess of the left part of the neck in the inferior portion externally having failed outpatient treatment. Bedside I&D was done -Morbid obesity BMI 40.5 -Diabetes mellitus type 2 and oral hypoglycemic -Obstructive sleep apnea uses CPAP -Essential hypertension Plan: Continue IV vancomycin. Await cultures. Discussed with the patient. Naproxen added for anti-inflammatory effect.
[2020-06-16] MEDS: VANCOMYCIN 2,250 MG in SODIUM CHLORIDE 0.9% 500 ML 500 ML IVPB SCH ×2 (02:40→11:04)
[2020-06-16 07:03] LABS: Glucose,Whole Blood 81 mg/dL (75-99)
[2020-06-16] MEDS: INSULIN ASPART (NovoLOG) 100 UNIT/ML VIAL SQ SCH ×2 (07:15→12:26)
[2020-06-16] MEDS: MULTIVITAMINS, THERA 1 EACH TAB PO SCH (08:38)
[2020-06-16] MEDS: NAPROXEN 250 MG TAB PO SCH ×2 (08:38→12:31)
[2020-06-16] MEDS: THIAMINE 100 MG TAB PO SCH (08:39)
[2020-06-16] MEDS: LINAGLIPTIN PO SCH (08:39)
[2020-06-16] MEDS: EMPAGLIFLOZIN PO SCH (08:39)
[2020-06-16] MEDS ORDERED: METOPROLOL SUCCINATE (ER) 100 MG TAB.ER.24H PO SCH (11:15)
[2020-06-16 12:22] LABS: Glucose,Whole Blood 78 mg/dL (75-99)
[2020-06-16 12:28] VITALS: BP 164/84; PULSE 71; RESP 20; TEMP 98.2
--- NOTE | 2020-06-16 13:17 | P.PN ---
Subjective Progress Note Date: 06/16/20 CHIEF COMPLAINT: Neck abscess HISTORY OF PRESENT ILLNESS: Patient is being followed for a neck abscess. He is status post bedside I&D. Cultures are pending. Currently on vancomycin. Patient reports improvement in his pain. The abscess is still draining. He is afebrile. Denies any nausea or vomiting. Blood sugar 81 PHYSICAL EXAM: VITAL SIGNS: Reviewed. GENERAL: Well-developed in no acute distress. HEENT: No sclera icterus. Extraocular movements grossly intact. Moist buccal mucosa. Head is atraumatic, normocephalic. Left neck abscess decrease in size. It is still is draining pus and blood. ABDOMEN: Soft. Nondistended. Nontender. NEUROLOGIC: Alert and oriented. Cranial nerves II through XII grossly intact. ASSESSMENT: 1. Neck abscess status post I&D at the bedside by Dr. Vega. Cultures have been obtained 2. Diabetes mellitus type 2 3. Alcohol abuse PLAN: -Okay to discharge home from surgical standpoint -Discharge antibiotics per medicine Physician Mold Burner note has been reviewed by physician. Signing provider agrees with the documented findings, assessment, and plan of care. Objective - Vital Signs Vital signs: Vital Signs Temp 98.2 F 06/16/20 12:27 Pulse 71 06/16/20 12:27 Resp 20 06/16/20 12:27 BP 164/84 06/16/20 12:27 Pulse Ox 98 06/16/20 12:27 Intake & Output 06/15/20 06/16/20 06/16/20 18:59 06:59 18:59 Intake Total 646 814 4090 Balance 842 928 6572 Intake: Intake, IV Titration 500 500 Amount Vancomycin 2,250 mg In 500 500 Sodium Chloride 0.9% 500 ml 500 ml @ 167 mls/hr IVPB Q8H [facility] Rx#: [id number] Oral 590 600 Other: Voiding Method Toilet Toilet Toilet # Voids 2 2 - Labs CBC & Chem 7: 06/14/20 04:15 06/15/20 06:10 Labs: Abnormal Lab Results - Last 24 Hours (Table) 06/15/20 Range/Units 19:58 POC Glucose (mg/dL) 106 H (75-99) mg/dL Microbiology - Last 24 Hours (Table) 06/14/20 12:00 Gram Stain - Final Neck Wound Culture - Final 06/13/20 09:56 Blood Culture - Preliminary Blood No Growth after 72 hours
--- NOTE | 2020-06-16 21:57 | P.DS ---
Providers Date of admission: 06/13/20 11:44 Expected date of discharge: 06/16/20 Attending physician: Rey More Consults: 06/13/20 12:42 Consult Physician Urgent Consulting Provider: Gold Vega Consult Reason/Comments: Abscess neck Do you want consulting provider notified?: Yes 06/16/20 12:33 Consult Physician Routine Consulting Provider: Andi Velasco Consult Reason/Comments: neck wound Do you want consulting provider notified?: Yes Primary care physician: Francisco Javier Jeter [facility] Course: Chief Complaint: Left neck abscess History of presenting complaint: This is a pleasant 40-year-old patient of Dr. Francisco Javier Jeter. Chronic stable medical conditions include diabetes, hypertension, obstructive sleep apnea, morbid obesity. Patient's had a motor described as a small wound of the back of the neck about 6 weeks ago. Has had an on and off. Did get some antibiotics from his family doctor. progressed to become painful large-draining. Questionable fever. And came into the ER.. I&D of the bedside was carried out by Dr. Vega. Started on IV vancomycin. Today-wound on the left neck much improved. Slight drainage. Discussed with the patient to continue with, warm compresses draining with finger. Discussed with Luly JERONIMO from surgery. Okay to DC. Also discussed with Dr. Everett from ID. Antibiotics discussed. Augmentin and doxycycline for home. Discussion and discharge planning more than 35 minutes Consultation: Dr. Vega from general surgery Dr. Everett from ID Physical examination: VITAL SIGNS: White count 87.5, 65, 18, 163/90, 98% room air GENERAL: Sitting on chair, comfortable EYES: Pupils equal. Conjunctiva normal. NECK: JVD unable to assess; wound on the left lower portion of the neck with some drainage. HEART: Distant heart sounds; no edema. LUNGS: Respiratory rate normal; distant breath sounds. ABDOMEN: Soft, nontender, liver spleen not palpable, no masses palpable. PSYCH: Alert and oriented x3; mood and affect normal. INVESTIGATIONS, reviewed in the clinical context: Wound culture -no growth White count 12.8 hemoglobin 13.4 increased neutrophils potassium 3.8 creatinine 0.7 to Soft tissue neck computed tomography scan-and large palatine tonsils causing occlusion of nasopharynx posterior daily. Assessment: -Recurrent abscess of the left part of the neck in the inferior portion externally having failed outpatient treatment. Bedside I&D was done-cultures negative. -Morbid obesity BMI 40.5 -Diabetes mellitus type 2 and oral hypoglycemic -Obstructive sleep apnea uses CPAP -Essential hypertension Disposition: Home Plan - Discharge Summary New Discharge Prescriptions: New Multivitamins, Thera [Multivitamin (formulary)] 1 each PO DAILY #30 tab Naproxen [Naprosyn] 250 mg PO TID-W/MEALS #21 tab Thiamine [Vitamin B-1] 100 mg PO DAILY #30 tab Amoxic-Pot Clav 875-125Mg [Augmentin 875-125] 1 tab PO Q12HR 10 Days #20 tab Doxycycline [Vibramycin] 100 mg PO BID 10 Days #20 capsule Continue Metoprolol Succinate (ER) [Toprol XL] 100 mg PO DAILY Empagliflozin/Linagliptin [Glyxambi 25 mg-5 mg Tablet] 1 tab PO DAILY Changed Losartan Potassium 100 mg PO HS #0 amLODIPine [Norvasc] 10 mg PO HS #0 Discontinued hydroCHLOROthiazide [Hydrodiuril] 25 mg PO DAILY Discharge Medication List Metoprolol Succinate (ER) [Toprol XL] 100 mg PO DAILY 03/09/18 [History] Empagliflozin/Linagliptin [Glyxambi 25 mg-5 mg Tablet] 1 tab PO DAILY 06/13/20 [History] Amoxic-Pot Clav 875-125Mg [Augmentin 875-125] 1 tab PO Q12HR 10 Days #20 tab 06/16/20 [Rx] Doxycycline [Vibramycin] 100 mg PO BID 10 Days #20 capsule 06/16/20 [Rx] Losartan Potassium 100 mg PO HS #0 06/16/20 [Rx] Multivitamins, Thera [Multivitamin (formulary)] 1 each PO DAILY #30 tab 06/16/20 [Rx] Naproxen [Naprosyn] 250 mg PO TID-W/MEALS #21 tab 06/16/20 [Rx] Thiamine [Vitamin B-1] 100 mg PO DAILY #30 tab 06/16/20 [Rx] amLODIPine [Norvasc] 10 mg PO HS #0 06/16/20 [Rx] Follow up Appointment(s)/Referral(s): Francisco Javier Jeter MD [Primary Care Provider] - 06/19/20 2:15 pm Andi Velasco MD [STAFF PHYSICIAN] - 07/03/20 1:00 pm Gold Vega MD [STAFF PHYSICIAN] - 06/27/20 2:30 pm Discharge Disposition: HOME SELF-CARE
[2020-06-17] MEDS ORDERED: VANCOMYCIN TROUGH DUE 1 EACH MISC MISCELLANE ONE (09:00)
--- NOTE | 2020-06-26 13:46 | P.OP ---
Date of Procedure: 06/14/20 Preoperative Diagnosis: Incision and drainage of left neck abscess Postoperative Diagnosis: Left neck abscess Procedure(s) Performed: Incision and drainage of left neck abscess Anesthesia: local Description of Procedure: Procedures the patient's bedside. The left neck abscess was prepped and draped usual sterile fashion. The area was anesthetized 1% local Xylocaine. Using 11 blade the skin was incised and the abscess cavity was entered. Cultures obtained. The wound was irrigated. The wound was then packed with wet-to-dry Kerlix. Patient top she will
== END 2020-06-16 17:28 | disposition home or self-care (01) | DRG 603 ==
LOC: EC 08:43 → 6NMEDSUR 11:44
PROVIDERS: ADMIT Hospitalist; ATTEND Hospitalist
PROC: 0J950ZX Drainage of Left Neck Subcutaneous Tissue and Fascia, Open Approach, Diagnostic (ICD-10-PCS; principal; 2020-06-14)
DX: L02.11 Cutaneous abscess of neck (principal); Z68.41 Body mass index [BMI] 40.0-44.9, adult; E11.9 Type 2 diabetes mellitus without complications; E66.01 Morbid (severe) obesity due to excess calories; G47.33 Obstructive sleep apnea (adult) (pediatric); K42.9 Umbilical hernia without obstruction or gangrene; I10 Essential (primary) hypertension; F10.10 Alcohol abuse, uncomplicated; F41.9 Anxiety disorder, unspecified; Z79.84 Long term (current) use of oral hypoglycemic drugs; Z79.899 Other long term (current) drug therapy; Z82.49 Family history of ischemic heart disease and other diseases of the circulatory system; Z84.2 Family history of other diseases of the genitourinary system; Z82.69 Family history of other diseases of the musculoskeletal system and connective tissue
CPT/HCPCS: 36415; 70491; 80048; 80053; 80202; 82565; 83605; 85025; 87040; 87070; 87075; 87205; 96365; 96366; 96375; 99285

== ENCOUNTER 2022-07-31 11:21 | Emergency (ER) | payer BC ==
--- NOTE | 2022-07-31 12:23 | ED ---
General Adult HPI - General Chief complaint: Recheck/Abnormal Lab/Rx Stated complaint: abn EKG Time Seen by Provider: 07/31/22 11:28 Source: patient Mode of arrival: ambulatory Limitations: no limitations - History of Present Illness Initial comments: Dictation was produced using [employer] dictation software. please excuse any grammatical, word or spelling errors. Chief Complaint: 42-year-old male presents to the emergency department for abnormal EKG History of Present Illness: Patient is a 42-year-old male he has past medical history of diabetes and hypertension. He presented to primary care physician's office where he saw one of the mid-level provider's. Patient presented therefore flulike symptoms. He had an EKG because he did complain of shortness of breath. Apparently he was told that he had abnormal EKG and was sent to the emergency department for further evaluation. Patient denies any chest pain. He does have shortness of breath but he also says related to his cough. Does have constitutional symptoms there but he has been ill in the household. Denies any history of coronary artery disease. Patient is not radiating not associated with diaphoresis. The ROS documented in this emergency department record has been reviewed and confirmed by me. Those systems with pertinent positive or negative responses have been documented in the HPI. All other systems are other negative and/or noncontributory. PHYSICAL EXAM: General Impression: Alert and oriented x3, not in acute distress HEENT: Normocephalic atraumatic, extra-ocular movements intact, pupils equal and reactive to light bilaterally, mucous membranes moist. Cardiovascular: Heart regular rate and rhythm Chest: Able to complete full sentences, no retractions, no tachypnea Abdomen: abdomen soft, non-tender, non-distended, no organomegaly Musculoskeletal: Pulses present and equal in all extremities, no peripheral edema Motor: no focal deficits noted Neurological: CN II-XII grossly intact, no focal motor or sensory deficits noted Skin: Intact with no visualized rashes Psych: Normal affect and mood ED course: 42-year-old male sent in from primary care physician's clinic office for abnormal EKG. He initially presented therefore respiratory infectious symptoms. Patient's EKG does not show any signs of ischemia or infarction. He has a right bundle-branch block without any signs of ischemia or infarction. Signs upon arrival are within acceptable limits. Nursing notes and chart review was performed EKG interpreted by me: Ventricular rate 80, sinus rhythm, right bundle branch block,. 170, QRS 152, QTc 455. No NM prolongation, no QTC prolongation, no ST or T-wave changes noted. Overall, this EKG is unremarkable Laboratory evaluation obtained. CBC, LOC is unremarkable. Patient is fully positive. Troponin is negative. Chest x-ray shows mild infiltrate. Patient given prescription for antibiotics to be taken in a [id number] patient appears told to hold onto the antibiotics for another 4-5 days if he is not feeling better he is instructed to start taken a Z-Nickolas. Patient given Tamiflu prescription. Advised follow-up with primary care doctor. - Related Data Home Medications Medication Instructions Recorded Confirmed Metoprolol Succinate (ER) [Toprol 100 mg PO PC-LUNCH 03/09/18 07/31/22 XL] Empagliflozin/Linagliptin 1 tab PO PC-LUNCH 06/13/20 07/31/22 [Glyxambi 25 mg-5 mg Tablet] Brexpiprazole [Rexulti] 1 mg PO PC-LUNCH 07/31/22 07/31/22 Escitalopram [Lexapro] 20 mg PO PC-LUNCH 07/31/22 07/31/22 Losartan Potassium 100 mg PO PC-LUNCH 07/31/22 07/31/22 Tamsulosin [Flomax] 0.4 mg PO PC-LUNCH 07/31/22 07/31/22 amLODIPine [Norvasc] 10 mg PO PC-LUNCH 07/31/22 07/31/22 Previous Rx's Medication Instructions Recorded Azithromycin [Zithromax Z Pack] 1 tab PO DIRECTED #6 tab 07/31/22 Oseltamivir [Tamiflu] 75 mg PO Q12HR 5 Days #10 cap 07/31/22 Allergies Allergy/AdvReac Type Severity Reaction Status Date / Time No Known Allergies Allergy Verified 07/31/22 13:11 Review of Systems ROS Statement: Those systems with pertinent positive or pertinent negative responses have been documented in the HPI. ROS Other: All systems not noted in ROS Statement are negative. Past Medical History Past Medical History: Diabetes Mellitus, Hypertension, Sleep Apnea/CPAP/BIPAP History of Any Multi-Drug Resistant Organisms: None Reported Past Surgical History: No Surgical Hx Reported Additional Past Surgical History / Comment(s): Pilonodal cyst surgery Past Anesthesia/Blood Transfusion Reactions: No Reported Reaction Past Psychological History: Anxiety Smoking Status: Never smoker Past Alcohol Use History: Occasional Past Drug Use History: None Reported - Past Family History Father Family Medical History: Cancer, Hypertension, Prostate Disorder Additional Family Medical History / Comment(s): Prostatectomy Mother Family Medical History: Fibromyalgia Additional Family Medical History / Comment(s): Fibromyalgia, allergies General Exam Limitations: no limitations Course Vital Signs 07/31/22 07/31/22 11:24 12:58 Temperature 100.8 F H Pulse Rate 89 Respiratory 20 20 Rate Blood Pressure 183/86 O2 Sat by Pulse 99 Oximetry Medical Decision Making - Lab Data Result diagrams: 07/31/22 12:48 07/31/22 12:48 Lab Results 07/31/22 07/31/22 07/31/22 Range/Units 11:38 12:48 12:48 WBC 7.6 (3.8-10.6) k/uL RBC 5.22 (4.30-5.90) m/uL Hgb 16.9 (13.0-17.5) gm/dL Hct 50.1 (39.0-53.0) % MCV 96.0 (80.0-100.0) fL MCH 32.3 (25.0-35.0) pg MCHC 33.6 (31.0-37.0) g/dL RDW 12.8 (11.5-15.5) % Plt Count 189 (150-450) k/uL MPV 7.5 Neutrophils % 80 % Lymphocytes % 10 % Monocytes % 7 % Eosinophils % 1 % Basophils % 1 % Neutrophils # 6.0 (1.3-7.7) k/uL Lymphocytes # 0.8 L (1.0-4.8) k/uL Monocytes # 0.5 (0-1.0) k/uL Eosinophils # 0.1 (0-0.7) k/uL Basophils # 0.0 (0-0.2) k/uL Sodium 139 (137-145) mmol/L Potassium 3.6 (3.5-5.1) mmol/L Chloride 104 (98-107) mmol/L Carbon Dioxide 28 (22-30) mmol/L Anion Gap 7 mmol/L BUN 11 (9-20) mg/dL Creatinine 0.62 L (0.66-1.25) mg/dL Est GFR (CKD-EPI)AfAm >90 (>60 ml/min/1.73 sqM) Est GFR (CKD-EPI)NonAf >90 (>60 ml/min/1.73 sqM) Glucose 163 H (74-99) mg/dL Calcium 8.7 (8.4-10.2) mg/dL Troponin I (0.000-0.034) ng/mL Influenza Type A (PCR) Detected A (Not Detectd) Influenza Type B (PCR) Not Detected (Not Detectd) RSV (PCR) Not Detected (Not Detectd) SARS-CoV-2 (PCR) Not Detected (Not Detectd) 07/31/22 Range/Units 12:48 WBC (3.8-10.6) k/uL RBC (4.30-5.90) m/uL Hgb (13.0-17.5) gm/dL Hct (39.0-53.0) % MCV (80.0-100.0) fL MCH (25.0-35.0) pg MCHC (31.0-37.0) g/dL RDW (11.5-15.5) % Plt Count (150-450) k/uL MPV Neutrophils % % Lymphocytes % % Monocytes % % Eosinophils % % Basophils % % Neutrophils # (1.3-7.7) k/uL Lymphocytes # (1.0-4.8) k/uL Monocytes # (0-1.0) k/uL Eosinophils # (0-0.7) k/uL Basophils # (0-0.2) k/uL Sodium (137-145) mmol/L Potassium (3.5-5.1) mmol/L Chloride (98-107) mmol/L Carbon Dioxide (22-30) mmol/L Anion Gap mmol/L BUN (9-20) mg/dL Creatinine (0.66-1.25) mg/dL Est GFR (CKD-EPI)AfAm (>60 ml/min/1.73 sqM) Est GFR (CKD-EPI)NonAf (>60 ml/min/1.73 sqM) Glucose (74-99) mg/dL Calcium (8.4-10.2) mg/dL Troponin I 0.014 (0.000-0.034) ng/mL Influenza Type A (PCR) (Not Detectd) Influenza Type B (PCR) (Not Detectd) RSV (PCR) (Not Detectd) SARS-CoV-2 (PCR) (Not Detectd) Disposition Clinical Impression: Influenza Disposition: HOME SELF-CARE Condition: Fair Instructions (If sedation given, give patient instructions): Influenza (DC) Prescriptions: Oseltamivir [Tamiflu] 75 mg PO Q12HR 5 Days #10 cap Azithromycin [Zithromax Z Pack] 1 tab PO DIRECTED #6 tab Is patient prescribed a controlled substance at d/c from ED?: No Referrals: Francisco Javier Jeter MD [Primary Care Provider] - 1-2 days Time of Disposition: 13:49
[2022-07-31 12:58] LABS: Basophils % (A) 1 %; Eosinophils # (A) 0.1 k/uL (0-0.7); Eosinophils % (A) 1 %; HCT 50.1 % (39.0-53.0); HGB 16.9 gm/dL (13.0-17.5); Lymphocytes # (A) 0.8 k/uL (1.0-4.8); Lymphocytes % (A) 10 %; MCH 32.3 pg (25.0-35.0); MCHC 33.6 g/dL (31.0-37.0); Mean Platelet Volume 7.5; Monocytes # (A) 0.5 k/uL (0-1.0); Monocytes % (A) 7 %; Neutrophils % (A) 80 %; Platelet Count 189 k/uL (150-450); RBC 5.22 m/uL (4.30-5.90); RDW 12.8 % (11.5-15.5); WBC 7.6 k/uL (3.8-10.6)
--- NOTE | 2022-07-31 13:09 | XR ---
EXAMINATION TYPE: XR chest 2V DATE OF EXAM: 07/31/2022 COMPARISON: NONE HISTORY: Cough TECHNIQUE: Frontal and lateral views of the chest are obtained. FINDINGS: Mild increased density right medial lung base could reflect developing infiltrate. Correlate clinical ly. No evidence for pneumothorax. No pleural effusion. The cardiac silhouette size is within normal limits. The osseous structures are grossly intact. IMPRESSION: 1. Mild increased density right medial lung base could reflect developing infiltrate. Correlate clin ically.
[2022-07-31 13:11] LABS: African American GFR (CKD) >90 (>60 ml/min/1.73 sqM); Anion Gap 7 mmol/L; Blood Urea Nitrogen 11 mg/dL (9-20); Calcium 8.7 mg/dL (8.4-10.2); Carbon Dioxide 28 mmol/L (22-30); Chloride 104 mmol/L (98-107); Glucose 163 mg/dL (74-99); Non-African American GFR(CKD) >90 (>60 ml/min/1.73 sqM); Potassium 3.6 mmol/L (3.5-5.1); Sodium 139 mmol/L (137-145)
[2022-07-31 13:49] VITALS: TEMP 99.6
[2022-07-31 14:23] VITALS: BP 170/72; PULSE 83; RESP 19
== END 2022-07-31 14:22 | disposition home or self-care (01) ==
LOC: EC 11:21
DX: J10.1 Influenza due to other identified influenza virus with other respiratory manifestations (principal); E11.9 Type 2 diabetes mellitus without complications; I10 Essential (primary) hypertension; F41.9 Anxiety disorder, unspecified; Z79.899 Other long term (current) drug therapy; Z20.822 Contact with and (suspected) exposure to COVID-19
CPT/HCPCS: 36415; 71046; 80048; 84484; 85025; 87636; 93005; 99285

== ENCOUNTER 2022-12-21 12:30 | Emergency (ER) | payer BC, OTHER ==
--- NOTE | 2022-12-21 12:56 | ED ---
General Adult HPI - General Chief complaint: Recheck/Abnormal Lab/Rx Stated complaint: abn labs Time Seen by Provider: 12/21/22 12:43 Source: patient, RN notes reviewed Mode of arrival: ambulatory Limitations: no limitations - History of Present Illness Initial comments: Patient is a pleasant 42-year-old male presenting to the emergency department with concerns for low potassium. Patient had a routine physical done yesterday with blood work. Patient received a call today stating his potassium was low. Patient otherwise feels fine. Patient states he was able to cut the grass without any difficulty. Patient states he does drink alcohol however has been cutting back. Patient has no other reason why his potassium may be low - Related Data Home Medications Medication Instructions Recorded Confirmed Metoprolol Succinate (ER) [Toprol 100 mg PO PC-LUNCH 03/09/18 07/31/22 XL] Empagliflozin/Linagliptin 1 tab PO PC-LUNCH 06/13/20 07/31/22 [Glyxambi 25 mg-5 mg Tablet] Brexpiprazole [Rexulti] 1 mg PO PC-LUNCH 07/31/22 07/31/22 Escitalopram [Lexapro] 20 mg PO PC-LUNCH 07/31/22 07/31/22 Losartan Potassium 100 mg PO PC-LUNCH 07/31/22 07/31/22 Tamsulosin [Flomax] 0.4 mg PO PC-LUNCH 07/31/22 07/31/22 amLODIPine [Norvasc] 10 mg PO PC-LUNCH 07/31/22 07/31/22 Previous Rx's Medication Instructions Recorded Azithromycin [Zithromax Z Pack] 1 tab PO DIRECTED #6 tab 07/31/22 Oseltamivir [Tamiflu] 75 mg PO Q12HR 5 Days #10 cap 07/31/22 Potassium Chloride ER [K-Dur 20] 20 meq PO TID #6 tab 12/21/22 Allergies Allergy/AdvReac Type Severity Reaction Status Date / Time No Known Allergies Allergy Verified 07/31/22 13:11 Review of Systems ROS Statement: Those systems with pertinent positive or pertinent negative responses have been documented in the HPI. ROS Other: All systems not noted in ROS Statement are negative. Constitutional: Denies: fever Eyes: Denies: eye pain ENT: Denies: ear pain Respiratory: Denies: cough Cardiovascular: Denies: chest pain Endocrine: Denies: fatigue Gastrointestinal: Denies: abdominal pain Genitourinary: Denies: dysuria Musculoskeletal: Denies: back pain Skin: Denies: lesions Neurological: Denies: weakness, numbness, paresthesias Past Medical History Past Medical History: Diabetes Mellitus, Hypertension, Sleep Apnea/CPAP/BIPAP History of Any Multi-Drug Resistant Organisms: None Reported Past Surgical History: No Surgical Hx Reported Additional Past Surgical History / Comment(s): Pilonodal cyst surgery Past Anesthesia/Blood Transfusion Reactions: No Reported Reaction Past Psychological History: Anxiety Smoking Status: Never smoker Past Alcohol Use History: Occasional Past Drug Use History: None Reported - Past Family History Father Family Medical History: Cancer, Hypertension, Prostate Disorder Additional Family Medical History / Comment(s): Prostatectomy Mother Family Medical History: Fibromyalgia Additional Family Medical History / Comment(s): Fibromyalgia, allergies General Exam Limitations: no limitations General appearance: alert, in no apparent distress Head exam: Present: atraumatic Eye exam: Present: normal appearance Neck exam: Present: normal inspection Respiratory exam: Present: normal lung sounds bilaterally Cardiovascular Exam: Present: regular rate, normal rhythm GI/Abdominal exam: Present: soft. Absent: tenderness Extremities exam: Present: normal inspection Neurological exam: Present: alert. Absent: motor sensory deficit Psychiatric exam: Present: normal affect, normal mood Skin exam: Present: normal color Course Vital Signs 12/21/22 12/21/22 12/21/22 12:37 12:53 13:00 Temperature 98.3 F Pulse Rate 99 Respiratory 18 Rate Blood Pressure 121/81 128/86 O2 Sat by Pulse 97 96 94 L Oximetry 12/21/22 12/21/22 12/21/22 13:16 13:20 13:40 Temperature 99.0 F Pulse Rate 90 90 90 Respiratory 18 4 L 6 L Rate Blood Pressure 133/77 138/77 153/78 O2 Sat by Pulse 93 L 93 L 94 L Oximetry 12/21/22 14:00 Temperature Pulse Rate 89 Respiratory 6 L Rate Blood Pressure 153/78 O2 Sat by Pulse 92 L Oximetry EKG Findings - EKG Results: EKG: interpreted by ERMD (Right bundle branch block. Lateral T wave inversion. Previous EKG reviewed dated 07/31/22), sinus rhythm, normal axis Medical Decision Making - Medical Decision Making Was pt. sent in by a medical professional or institution (Dr., PA, FINANCIAL SERVICES ASSOCIATE, urgent care, hospital, or halfway...) When possible be specific @ -No Did you speak to anyone other than the patient for history (EMS, parent, family, police, friend...)? What history was obtained from this source @ -No Did you review nursing and triage notes (agree or disagree)? Why? @ -I reviewed and agree with nursing and triage notes Were old charts reviewed (outside hosp., previous admission, EMS record, old EKG, old radiological studies, urgent care reports/EKG's, halfway records)? Report findings @ -No old charts were reviewed Differential Diagnosis (chest pain, altered mental status, abdominal pain women, abdominal pain men, vaginal bleeding, weakness, fever, dyspnea, syncope, headache, dizziness, GI bleed, back pain, seizure, CVA, palpatations, mental health)? @ -not applicable EKG interpreted by me (3pts min.). @ -As above X-rays interpreted by me (1pt min.). @ -None done CT interpreted by me (1pt min.). @ -None done U/S interpreted by me (1pt. min.). @ -None done What testing was considered but not performed or refused? (CT, X-rays, U/S, labs)? Why? @ -None What meds were considered but not given or refused? Why? @ -None Did you discuss the management of the patient with other professionals (professionals i.e. , PA, FINANCIAL SERVICES ASSOCIATE, lab, RT, psych nurse, social media job titles, forge hand, teacher, corporate ethics officer, case manager specialist)? Give summary @ -No Was smoking cessation discussed for >3mins.? @ -No Was critical care preformed (if so, how long)? @ -No Were there social determinants of health that impacted care today? How? (Homelessness, low income, unemployed, alcoholism, drug addiction, transportation, low edu. Level, literacy, decrease access to med. care, residential, rehab)? @ -No Was there de-escalation of care discussed even if they declined (Discuss DNR or withdrawal of care, Hospice)? DNR status @ -No What co-morbidities impacted this encounter? (DM, HTN, Smoking, COPD, CAD, Cancer, CVA, ARF, Chemo, Hep., AIDS, mental health diagnosis, sleep apnea, morbid obesity)? @ -None Was patient admitted / discharged? Hospital course, mention meds given and route, prescriptions, significant lab abnormalities, going to OR and other pertinent info. @ -Patient has hypokalemia however QTc is less than 500. We will attempt replacement and discharged. Patient will receive prescription for the next couple days and recommended close follow-up for repeat labs beginning of the week. Patient is agreeable to this. Undiagnosed new problem with uncertain prognosis? @ -No Drug Therapy requiring intensive monitoring for toxicity (Heparin, Nitro, Insulin, Cardizem)? @ -No Were any procedures done? @ -No Diagnosis/symptom? @ -Hypokalemia Acute, or Chronic, or Acute on Chronic? @ -Acute Uncomplicated (without systemic symptoms) or Complicated (systemic symptoms)? @ -default Side effects of treatment? @ -No Exacerbation, Progression, or Severe Exacerbation? @ -No Poses a threat to life or bodily function? How? (Chest pain, [place], [place], pneumonia, PE, COPD, DKA, ARF, appy, cholecystitis, CVA, Diverticulitis, Homicidal, Suicidal, threat to staff... and all critical care pts) @ -No - Lab Data Result diagrams: 12/21/22 13:15 12/21/22 13:15 Lab Results 12/21/22 12/21/22 Range/Units 13:15 13:15 WBC 12.2 H (3.8-10.6) k/uL RBC 5.19 (4.30-5.90) m/uL Hgb 16.9 (13.0-17.5) gm/dL Hct 48.8 (39.0-53.0) % MCV 93.9 (80.0-100.0) fL MCH 32.5 (25.0-35.0) pg MCHC 34.6 (31.0-37.0) g/dL RDW 12.8 (11.5-15.5) % Plt Count 245 (150-450) k/uL MPV 7.5 Neutrophils % 71 % Lymphocytes % 20 % Monocytes % 6 % Eosinophils % 1 % Basophils % 0 % Neutrophils # 8.7 H (1.3-7.7) k/uL Lymphocytes # 2.4 (1.0-4.8) k/uL Monocytes # 0.7 (0-1.0) k/uL Eosinophils # 0.2 (0-0.7) k/uL Basophils # 0.0 (0-0.2) k/uL Sodium 140 (137-145) mmol/L Potassium 2.6 L* (3.5-5.1) mmol/L Chloride 95 L (98-107) mmol/L Carbon Dioxide 38 H (22-30) mmol/L Anion Gap 7 mmol/L BUN 18 (9-20) mg/dL Creatinine 0.70 (0.66-1.25) mg/dL Est GFR (CKD-EPI)AfAm >90 (>60 ml/min/1.73 sqM) Est GFR (CKD-EPI)NonAf >90 (>60 ml/min/1.73 sqM) Glucose 126 H (74-99) mg/dL Calcium 8.8 (8.4-10.2) mg/dL Magnesium 2.0 (1.6-2.3) mg/dL Total Bilirubin 0.7 (0.2-1.3) mg/dL AST 72 H (17-59) U/L ALT 129 H (4-49) U/L Alkaline Phosphatase 99 (38-126) U/L Total Protein 6.5 (6.3-8.2) g/dL Albumin 4.1 (3.5-5.0) g/dL Disposition Clinical Impression: Hypokalemia Disposition: HOME SELF-CARE Condition: Stable Instructions (If sedation given, give patient instructions): Hypokalemia (ED) Additional Instructions: Prescription sent to pharmacy. Please get this filled and start tonight. Please follow-up to primary care physician Friday and have your potassium level rechecked. Primary care physician will need to correct if you need further potassium replacement. Return for vomiting, weakness, not tolerating oral intake, cramps, worsening symptoms or other concerns. Prescriptions: Potassium Chloride ER [K-Dur 20] 20 meq PO TID #6 tab Is patient prescribed a controlled substance at d/c from ED?: No Referrals: Francisco Javier Jeter MD [Primary Care Provider] - 1-2 days Time of Disposition: 14:21
[2022-12-21 13:18] VITALS: TEMP 99
[2022-12-21 13:21] LABS: Basophils % (A) 0 %; Eosinophils # (A) 0.2 k/uL (0-0.7); Eosinophils % (A) 1 %; HCT 48.8 % (39.0-53.0); HGB 16.9 gm/dL (13.0-17.5); Lymphocytes # (A) 2.4 k/uL (1.0-4.8); Lymphocytes % (A) 20 %; MCH 32.5 pg (25.0-35.0); MCHC 34.6 g/dL (31.0-37.0); MCV 93.9 fL (80.0-100.0); Mean Platelet Volume 7.5; Monocytes # (A) 0.7 k/uL (0-1.0); Monocytes % (A) 6 %; Neutrophils # (A) 8.7 k/uL (1.3-7.7); Neutrophils % (A) 71 %; Platelet Count 245 k/uL (150-450); RBC 5.19 m/uL (4.30-5.90); RDW 12.8 % (11.5-15.5); WBC 12.2 k/uL (3.8-10.6)
[2022-12-21 13:43] LABS: ALT 129 U/L (4-49); AST 72 U/L (17-59); African American GFR (CKD) >90 (>60 ml/min/1.73 sqM); Albumin 4.1 g/dL (3.5-5.0); Alkaline Phosphatase 99 U/L (38-126); Anion Gap 7 mmol/L; Blood Urea Nitrogen 18 mg/dL (9-20); Calcium 8.8 mg/dL (8.4-10.2); Carbon Dioxide 38 mmol/L (22-30); Chloride 95 mmol/L (98-107); Glucose 126 mg/dL (74-99); Non-African American GFR(CKD) >90 (>60 ml/min/1.73 sqM); Sodium 140 mmol/L (137-145); Total Bilirubin 0.7 mg/dL (0.2-1.3); Total Protein 6.5 g/dL (6.3-8.2)
[2022-12-21 13:47] LABS: Potassium 2.6 mmol/L (3.5-5.1)
[2022-12-21] MEDS ORDERED: POTASSIUM CHLORIDE ER 20 MEQ TAB.ER PO STA (14:10)
[2022-12-21] MEDS ORDERED: POTASSIUM CHLORIDE 10 MEQ in WATER FOR INJECTION 1 100ML.BAG IVPB STA (14:10)
[2022-12-21 15:42] VITALS: BP 143/86; PULSE 82; RESP 18
== END 2022-12-21 15:58 | disposition home or self-care (01) ==
LOC: EC 12:30
DX: E87.6 Hypokalemia (principal); E11.9 Type 2 diabetes mellitus without complications; I10 Essential (primary) hypertension; F41.9 Anxiety disorder, unspecified; Z79.84 Long term (current) use of oral hypoglycemic drugs; Z79.899 Other long term (current) drug therapy
CPT/HCPCS: 99284; 96365; 36415; 93005; 80053; 83735; 85025; J3480; 96360

== ENCOUNTER 2023-10-16 17:45 | Emergency (ER) | payer OTHER ==
--- NOTE | 2023-10-16 18:26 | ED ---
General Adult HPI - General Chief complaint: Extremity Injury, Lower Stated complaint: Pain in R leg Time Seen by Provider: 10/16/23 18:26 Source: patient, RN notes reviewed Mode of arrival: ambulatory Limitations: no limitations - History of Present Illness Initial comments: 43-year-old male presents to the emergency department for evaluation of right leg injury. Patient states that he was playing basketball today when he was running he felt a pop in his calf. He now reports that he cannot bear weight on the right leg following this. He denies any other injury. - Related Data Home Medications Medication Instructions Recorded Confirmed Metoprolol Succinate (ER) [Toprol 100 mg PO PC-LUNCH 03/09/18 07/31/22 XL] Empagliflozin/Linagliptin 1 tab PO PC-LUNCH 06/13/20 07/31/22 [Glyxambi 25 mg-5 mg Tablet] Brexpiprazole [Rexulti] 1 mg PO PC-LUNCH 07/31/22 07/31/22 Escitalopram [Lexapro] 20 mg PO PC-LUNCH 07/31/22 07/31/22 Losartan Potassium 100 mg PO PC-LUNCH 07/31/22 07/31/22 Tamsulosin [Flomax] 0.4 mg PO PC-LUNCH 07/31/22 07/31/22 amLODIPine [Norvasc] 10 mg PO PC-LUNCH 07/31/22 07/31/22 Previous Rx's Medication Instructions Recorded Azithromycin [Zithromax Z Pack] 1 tab PO DIRECTED #6 tab 07/31/22 Oseltamivir [Tamiflu] 75 mg PO Q12HR 5 Days #10 cap 07/31/22 Potassium Chloride ER [K-Dur 20] 20 meq PO TID #6 tab 12/21/22 Allergies Allergy/AdvReac Type Severity Reaction Status Date / Time No Known Allergies Allergy Verified 10/16/23 18:25 Review of Systems ROS Statement: Those systems with pertinent positive or pertinent negative responses have been documented in the HPI. ROS Other: All systems not noted in ROS Statement are negative. Past Medical History Past Medical History: Diabetes Mellitus, Hypertension, Sleep Apnea/CPAP/BIPAP History of Any Multi-Drug Resistant Organisms: None Reported Past Surgical History: No Surgical Hx Reported Additional Past Surgical History / Comment(s): Pilonodal cyst surgery Past Anesthesia/Blood Transfusion Reactions: No Reported Reaction Past Psychological History: Anxiety Smoking Status: Never smoker Past Alcohol Use History: Occasional Past Drug Use History: None Reported - Past Family History Father Family Medical History: Cancer, Hypertension, Prostate Disorder Additional Family Medical History / Comment(s): Prostatectomy Mother Family Medical History: Fibromyalgia Additional Family Medical History / Comment(s): Fibromyalgia, allergies General Exam - General Exam Comments Initial Comments: Visual Physical Exam Vital signs reviewed General: Well-appearing, nontoxic, no acute distress. Head: Normocephalic, atraumatic Eyes: PERRLA, EOMI ENT: Airway patent Chest: Nonlabored breathing Skin: No visual rash, normal skin tone Neuro: Alert and oriented 3 Musculoskeletal: No gross abnormalities Limitations: no limitations General appearance: alert, in no apparent distress Head exam: Present: atraumatic, normocephalic, normal inspection Eye exam: Present: normal appearance, PERRL, EOMI. Absent: scleral icterus, conjunctival injection, periorbital swelling Neck exam: Present: normal inspection. Absent: tenderness, meningismus, lymphadenopathy Extremities exam: Present: full ROM, tenderness (Rt calf ), normal capillary refill, other (DP and PT pulses 2+, possible deformity to the right achilles, normal javier test bilaterally). Absent: pedal edema, joint swelling, calf tenderness Neurological exam: Present: alert, oriented X3 Psychiatric exam: Present: normal affect, normal mood Skin exam: Present: warm, dry, intact, normal color. Absent: rash Course Vital Signs 10/16/23 10/16/23 18:21 20:28 Temperature 97.8 F 97.6 F Pulse Rate 73 79 Respiratory 18 16 Rate Blood Pressure 152/90 160/75 O2 Sat by Pulse 96 98 Oximetry Procedures - Orthopedic Splinting/Casting Injury #1 Side: right Lower Extremity Injury Location: short leg (plantar flexion) Medical Decision Making - Medical Decision Making Quick note preformed and electronically signed by Janee Mays PA-C Was pt. sent in by a medical professional or institution ([facility], PIPE ASSEMBLY WORKER, urgent care, hospital, or alf...) When possible be specific @ -No Did you speak to anyone other than the patient for history (EMS, parent, family, police, friend...)? What history was obtained from this source @ -No Did you review nursing and triage notes (agree or disagree)? Why? @ -I reviewed and agree with nursing and triage notes Were old charts reviewed (outside hosp., previous admission, EMS record, old EKG, old radiological studies, urgent care reports/EKG's, alf records)? Report findings @ -No old charts were reviewed Differential Diagnosis (chest pain, altered mental status, abdominal pain women, abdominal pain men, vaginal bleeding, weakness, fever, dyspnea, syncope, headache, dizziness, GI bleed, back pain, seizure, CVA, palpatations, mental health, musculoskeletal)? @ -Differential Musculoskeletal Muscular strain, contusion, ligament sprain, fracture, arthritis, septic arthritis, bursitis, cellulitis, muscle spasm, nerve compression, DVT, arterial occlusion, herpes zoster, electrolyte abnormality, tumor.... This is not meant to be in all inclusive list EKG interpreted by me (3pts min.). @ -None X-rays interpreted by me (1pt min.). @ -Right tib-fib x-ray obtained which shows no acute fracture CT interpreted by me (1pt min.). @ -None done U/S interpreted by me (1pt. min.). @ -None done What testing was considered but not performed or refused? (CT, X-rays, U/S, labs)? Why? @ -None What meds were considered but not given or refused? Why? @ -None Did you discuss the management of the patient with other professionals (professionals i.e. , PA, PIPE ASSEMBLY WORKER, lab, RT, psych nurse, high school social science teacher, product development director, teacher, inspectors and regulatory officers, casey saw operator)? Give summary @ -No Was smoking cessation discussed for >3mins.? @ -No Was critical care preformed (if so, how long)? @ -No Were there social determinants of health that impacted care today? How? (Homelessness, low income, unemployed, alcoholism, drug addiction, transportation, low edu. Level, literacy, decrease access to med. care, skilled nursing, rehab)? @ -No Was there de-escalation of care discussed even if they declined (Discuss DNR or withdrawal of care, Hospice)? DNR status @ -No What co-morbidities impacted this encounter? (DM, HTN, Smoking, COPD, CAD, Cancer, CVA, ARF, Chemo, Hep., AIDS, mental health diagnosis, sleep apnea, morbid obesity)? @ -None Was patient admitted / discharged? Hospital course, mention meds given and route, prescriptions, significant lab abnormalities, going to OR and other pertinent info. @ -Discharge. Patient presented to the emergency department for evaluation of right leg pain. He states that he was playing basketball and felt a pop in his calf, since then he has been unable to bear weight. X-rays obtained which show no evidence of acute fracture. Patient was placed in a short leg splint in slight plantarflexion with concern for achilles injury. Patient provided crutches and information for orthopedics and advised follow up. Patient understanding and agreeable with plan. Patient stable at time of discharge. Case discussed with Dr. Herrmann Undiagnosed new problem with uncertain prognosis? @ -No Drug Therapy requiring intensive monitoring for toxicity (Heparin, Nitro, Insulin, Cardizem)? @ -No Were any procedures done? @ -No Diagnosis/symptom? @ -achilles tendon injury Acute, or Chronic, or Acute on Chronic? @ -acute Uncomplicated (without systemic symptoms) or Complicated (systemic symptoms)? @ -uncomplicated Side effects of treatment? @ -No Exacerbation, Progression, or Severe Exacerbation? @ -No Poses a threat to life or bodily function? How? (Chest pain, [place], [place], pneumonia, PE, COPD, DKA, ARF, appy, cholecystitis, CVA, Diverticulitis, Homicidal, Suicidal, threat to staff... and all critical care pts) @ -No Disposition Clinical Impression: Achilles tendon injury Disposition: HOME SELF-CARE Condition: Stable Instructions (If sedation given, give patient instructions): Achilles Tendinitis (ED) Additional Instructions: Please follow up with orthopedics. Rest, ice, elevate the leg. Return to the em ergency department for new or worsening symptoms. Is patient prescribed a controlled substance at d/c from ED?: No Referrals: Francisco Javier Jeter MD [Primary Care Provider] - 1-2 days Darryl Funes MD [Medical Doctor] - 1-2 days
--- NOTE | 2023-10-16 19:31 | XR ---
PROCEDURE: XR tibia fibula RT -4V DATE AND TIME: 10/16/2023 6:42 PM CLINICAL INDICATION: PHH; pain TECHNIQUE: Department protocol COMPARISON: None FINDINGS: There is no fracture or malalignment. The soft tissues are negative for acute findings. Mil d scattered osteoarthrosis changes noted. IMPRESSION: NO ACUTE PROCESS.
[2023-10-16] MEDS: KETOROLAC 15 MG/ML 1 ML VIAL IM STA (20:25)
[2023-10-16 20:59] VITALS: BP 160/75; PULSE 79; RESP 16; TEMP 97.6
== END 2023-10-16 20:51 | disposition home or self-care (01) ==
LOC: EC 17:45
DX: S89.91XA Unspecified injury of right lower leg, initial encounter (principal); E11.9 Type 2 diabetes mellitus without complications; I10 Essential (primary) hypertension; G47.30 Sleep apnea, unspecified; F41.9 Anxiety disorder, unspecified; Z79.899 Other long term (current) drug therapy; W19.XXXA Unspecified fall, initial encounter; Y93.02 Activity, running
CPT/HCPCS: 99283; 96372; 73590; J1885

== ENCOUNTER → 2024-07-09 | Outpatient (CLI) | payer OTHER ==
[2024-07-09 10:21] LABS: African American GFR (CKD) >90 (>60 ml/min/1.73 sqM); Non-African American GFR(CKD) >90 (>60 ml/min/1.73 sqM)
--- NOTE | 2024-07-09 10:57 | CT ---
CT thorax with and without contrast. HISTORY: Hemoptysis. COMPARISON: None. TECHNIQUE: Multiple axial images were obtained through the thorax before and after the uneventful adm inistration of nonionic IV contrast material. FINDINGS: There are scattered micronodules but no suspicious lung mass or nodule. There is a calcified left hilar lymph node but no evidence of lymphadenopathy. The great vessels ches t are normal. There is no airspace consolidation or abnormal interstitial opacity. There is no pleural effusion or pneumothorax. Limited scanning through the upper abdomen reveals no gross abnormality. No focal osseous lesions are seen. IMPRESSION: 1. No acute cardiopulmonary disease. 2. Few scattered micronodules but no suspicious lung mass or nodule. There are 3. No mediastinal, hilar or axillary adenopathy. [facility], Workstation: DENICE 07/09/2024 10:55 AM
== END | disposition home or self-care (01) ==
LOC: RADCTMAIN 09:43
PROVIDERS: ATTEND Family Medicine
DX: R04.2 Hemoptysis (principal)
CPT/HCPCS: 82565; 71270; 36415; Q9967

== ENCOUNTER → 2025-03-04 | Outpatient (CLI) | payer BC ==
--- NOTE | 2025-03-04 15:03 | US ---
EXAMINATION TYPE: US arterial LE single level DATE OF EXAM: 03/04/2025 2:12 PM COMPARISONS: None. CLINICAL INDICATION: Male, 44 years old with history of E11.621 TYPE 2 DIABETES MELLITUS WITH FOOT UL CER; Wound on left foot per patient TECHNIQUE: Systolic pressures were taken of the upper and lower extremity arteries with ankle-brachia l indices and toe brachial indices calculated bilaterally. History of: Smoker: No Hypertension: Yes Diabetic: Yes Hyperlipidemia: No TIA/CVA: No Previous Vascular Surgery: No CAD: No RI: No Vascular Ulcers: Left Claudication: No Gangrene: No FINDINGS: Doppler Waveforms: Right: Monophasic waveforms within the femoral digit. Triphasic within the popliteal, posterior tibia l and dorsalis pedis. Left: Monophasic waveforms within the femoral, dorsalis pedis and digit. Triphasic waveforms within t he popliteal and posterior tibial. Brachial Artery systolic pressure:Brachial pressures taken x 2 Right: 160 Left: 138 Posterior Tibial artery systolic pressure: Right: 173 Left: 155 Dorsalis Pedis artery systolic pressure: Right: 140 Left: 138 Toe artery systolic pressure: Right: 119 Left: 106 Ankle-Brachial Indices: Right: 1.1 Left: 1.0 Toe Brachial Indices: Right: 0.7 Left: 0.7 (Normal > 0.6; Mild 0.35 - 0.59, Moderate 0.12 - 0.34, Severe <0.12) IMPRESSION: SONIA: Right: Normal 0.9 - 1.4, Recommendation: None Left: Normal 0.9 - 1.4, Recommendation: None [facility], , 03/04/2025 3:01 PM
== END | disposition home or self-care (01) ==
LOC: RADUSWWP 13:35
PROVIDERS: ATTEND Family Medicine
DX: E11.621 Type 2 diabetes mellitus with foot ulcer (principal)
CPT/HCPCS: 93922